=== PATIENT | female | born 1955 | race Caucasian/White ===

== ENCOUNTER 2022-06-08 11:30 | Observation (INO) ==
[2022-06-08 12:04] LABS: Appearance Urine Clear (Clear); Bacteria Urine Automated Negative (Negative); Bilirubin Urine Negative (Negative); Blood Urine Negative (Negative); Cast Urine Automated 0 /lpf (0-5); Color Urine Yellow; Epithelial Cell Urine Auto >30 /lpf (0-5); Glucose Urine UA Negative (Negative); Ketones Urine Negative (Negative); Leukocyte Esterase Urine Trace (Negative); Nitrite Urine Negative (Negative); RBC Urine Automated 0-4 /hpf (0-4); Specific Gravity Urine 1.015 (1.000-1.030); Urobilinogen Urine Negative (Negative); pH Urine 8.5 (4.5-7.5)
[2022-06-08 12:06] LABS: Protein Urine 1+ (Negative)
[2022-06-08 12:14] LABS: Basophils # (auto) 0.05 K/uL (0-0.2); Basophils % (auto) 0.6 %; Eosinophils # (auto) 0.17 K/uL (0-0.50); Hematocrit (blood only) 38.2 % (37.0-47.0); Hemoglobin 12.9 g/dl (12.0-16.0); Immature Granulocytes # (auto) 0.05 K/uL (0.01-0.20); Immature Granulocytes % (auto) 0.6 %; Lymphocytes % (auto) 22.8 %; Mean Corpuscular Hemoglobin 30.9 pg (25.0-34.0); Mean Corpuscular Hgb Conc 33.8 g/dL (32.0-36.0); Mean Corpuscular Volume 91.6 fL (80.0-100.0); Mean Platelet Volume 8.4 fL (9.4-12.4); Monocytes % (auto) 8.4 %; Neutrophils # (auto) 5.48 K/uL (1.40-6.50); Neutrophils % (auto) 65.6 %; Platelet Count 285 K/uL (130-400); RDW Coefficient of Variation 13.6 % (11.5-14.5); Red Blood Count 4.17 M/uL (4.20-5.40); White Blood Count 8.35 K/ul (4.8-10.8)
[2022-06-08] MEDS ORDERED: LORazepam 2 MG/1 ML VIAL IV STA (12:27)
[2022-06-08] MEDS ORDERED: SODIUM CHLORIDE 0.9% 1000ML 1,000 ML IV ONE ×2 (12:27→13:54)
[2022-06-08] MEDS ORDERED: MoRPHine SULFATE 4 MG/ML 1 ML CARP\\VIAL IV STA (12:27)
[2022-06-08 12:30] LABS: Albumin Level 3.7 gm/dl (3.4-5.0); Bilirubin,Total 0.5 mg/dl (0.2-1.0); Calcium 8.7 mg/dl (8.6-10.3); Potassium 4.3 mmol/L (3.5-5.1)
--- NOTE | 2022-06-08 12:33 | Emergency Department Note ---
Impression & Plan Intractable abdominal pain, Acute constipation, Anxiety ED Provider Note Name: JACE LAY Age: 66 Sex: F Arrives Via: Walk-In Informant: Patient, ED Provider: Quang Argueta MD Chief Complaint: Abdominal pain Impression: As per impressions above Medical Decision Makin-year-old female who has a history of COPD, depression/anxiety, hyperlipidemia, hypertension, restless leg, gastroparesis, CAD, GERD, personality disorder arrives for evaluation of worsening abdominal pain over the last week and a half. She had already been seen several days ago with a CT of the abdomen pelvis along with extensive other laboratory work-ups and no clear etiology could be found. They did note at that time that she had had a aortic ulceration/small dissection which patient states she is aware of. Reportedly at that time patient had no interest in staying in the hospital left AMA. Patient arrives with continued pain and noting that she has not had a bowel movement in about 10 days. On examination she does not truly have peritonitis and just has vague diffuse abdominal tenderness palpation. She is severely anxious sobbing at bedside. She is clearly uncomfortable as well. She was given IV narcotics with mild improvement as well as some IV Ativan which helped calm her down some. Unfortunately pain sided coming back again. I did feel that getting CT scan a gain was indicated which fortunately is negative other than the aortic findings seen earlier as well. Laboratory work-up is essentially benign. While she is uncomfortable I feel that with 2 CTs that are negative no other acute findings this is highly unlikely to be ischemic bowel related. There is no evidence of obstruction or infection or other concerning findings. On extensive discussion with the patient she does admit that they recently changed her Valium to Klonopin I suspect given how severely anxious she is this probably is not working very well for her quite this time. That said while this may have to do with anxiety medication change I do not feel comfortable discharging her haider aring her medically given the amount of pain she is having on and off. This may all just be a severe episode of gastroparesis with complicated constipation but she is not obstructed from any way I can see. She was hydrated and I did discuss the case with the hospitalist for further management. Prior Medical Record and Triage/Nursing Notes reviewed by Me External chart review completed by me Differentials:Ischemic bowel, small bowel obstruction, pancreatitis, aortic ru pture, diverticulitis, dissection, many other pathologies considered Vital Signs: reviewed and remarkable for no significant abnormalities Interventions: Morphine 4 mg IV, Benadryl 50 mg IV, Ativan 1 mg IV. Dilaudid 0.5 mg IV, normal saline bolus 2 L IV Labs:Reviewed and remarkable for no significant abnormalities Imaging:CT of the abdomen pelvis as per my informal interpretation reveals no e vidence of obstruction, free air. Radiologist report as per chart notes continued finding on the aorta with ulceration flash small dissection similar to previous unchanged. Consults:Dr Monroe of the [facility] service Plan: Disposition: Hospitalization. Condition: Good History of Present Illness:66-year-old female arrives for evaluation of abdominal pain. Patient notes diffuse abdominal pain. Going on 7 days. Stabbing cramping and relatively constant but does come in waves. Associated with severe nausea but unable to vomit due to previous Niesen surgery. Patient also admits she has not had a bowel movement in about 10 days. Usually she goes 3 to 4 days without a bowel movement. She was seen about a week ago in the ER had extensive laboratory work-up and CT of the abdomen pelvis was advised to stay but she notes she wanted to try going home. She has been in pain unable to eat and severe weakness at home. Patient has been using Klonopin without much improvement. She does note that she previously was on Valium and about a week ago switched from Valium to Klonopin per PCP. That is around the time that the pain started. Patient denies any falls, trauma, injuries. Has a history of abdominal surgery including previous mesh issues requiring repeat surgery. This surgery was all about 25 years ago. Past History:COPD/emphysema, hyperlipidemia, anxiety/depression, GERD, hypert ension Home Medications:See Below Allergies:Aspirin, NSAIDs, Lasix, Dilaudid Vitals:Blood Pressure: 153/81, Pulse 84, RR 20, T 37C, O2 96% on RA Physical Exam: GENERAL: Patient is severely upset/anxious appearing and in severe distress. Crying and sobbing with shaking. Frail and cachectic appearing EYES: No scleral icterus, unremarkable pupils. ENT: Mucous membranes dry RESPIRATORY: Mild tachypnea without any specific dyspnea, mild expiratory wheezing noted. CARDIOVASCULAR: Regular rate and rhythm.No murmurs, rubs, gallops appreciated. GASTROINTESTINAL: Abdomen soft, with diffuse nonspecific tenderness EXTREMITIES: Normal motion all extremities, no cyanosis, no edema. NEUROLOGIC: Alert and oriented, no gross neurologic deficit appreciated SKIN: No rash, no jaundice, no diaphoresis. PSYCH: Severely anxious and upset GCS: 15 ED Course: Times/Reassessments: Patient is feeling better with some pain medications and anxiety medication. Unfortunately pain started returning. She had some itching after morphine and thus Dilaudid was used with good effect Quang Argueta MD Past Med/Surg History Medical History Atherosclerosis Bladder infection Borderline personality disorder Cervical stenosis of spine Chronic constipation Chronic hyponatremia Chronic respiratory failure with hypoxia Chronic ulcerative ileocolitis COPD (chronic obstructive pulmonary disease) Coronary artery calcification Depression with anxiety Essential hypertension Fibrocystic breast changes Gastroparesis GERD (gastroesophageal reflux disease) Hepatitis Age 14 likely hepatitis A Hiatal hernia History of electroconvulsive therapy Hyperlipidemia Hypertension ABRAHAM (obstructive sleep apnea) Osteoporosis Restless leg syndrome Tobacco use Surgical History (Updated 06/08/22 @ 16:18 by Sally Dias PA-C) History of appendectomy History of cholecystectomy History of colonoscopy History of esophagogastroduodenoscopy (EGD) History of hernia repair Reported history diaphragm hernia repair History of hysterectomy History of neck surgery May [address] ACDF C5-6 [address] Patel Family History Sister Tremor Brother Tremor Social History (Updated 06/08/22 @ 16:02 by Sally Dias PA-C) Smoking Status: Current every day smoker Tobacco Type: Cigarettes Cigarettes Per Day: 1ppd x 50 years; Hx Alcohol Use: No Hx Substance Use: No Preferred Language: Haitian Communication Ability: Effective Lodge Attendant Required: No Beliefs That Will Affect Care: None Current Living Situation: Family Current Living Situation Comment: home with son Feels Safe at Home: Yes Assistive Devices: Oxygen - Continuous Allergies Allergies Allergy/AdvReac Type Severity Reaction Status Date / Time aspirin Allergy Severe EDEMA Verified 06/08/22 15:08 AIRWAY, ABD PAIN haloperidol [From Haldol] Allergy Severe PER PT Verified 06/08/22 15:08 "STOPS BREATHING".--PER [facility] latex Allergy Intermediate Contact Verified 06/08/22 15:08 Dermatitis--ITCHING-GLOVES/PLASTIC TAPE pistachio nut Allergy Intermediate Hives Verified 06/08/22 15:08 sulfamethoxazole Allergy Mild ITCHING Verified 06/08/22 15:08 [From Bactrim] trimethoprim [From Bactrim] Allergy Mild ITCHING Verified 06/08/22 15:08 whey Allergy Unknown POSITIVE Verified 06/08/22 15:08 ALLERGY TEST amoxicillin [From Augmentin] AdvReac Intermediate NAUSEA/VOMI Verified 06/08/22 15:08 TING ciprofloxacin AdvReac Intermediate WEAKNESS/TR Verified 06/08/22 15:08 EMORS/NAUSE A clavulanic acid AdvReac Intermediate NAUSEA/VOMI Verified 06/08/22 15:08 [From Augmentin] TING hydromorphone [From Dilaudid] AdvReac Intermediate HALLUCINATI Verified 06/08/22 15:08 ONS ibuprofen AdvReac Intermediate Abdominal Verified 06/08/22 15:08 Pain levofloxacin AdvReac Intermediate Abdominal Verified 06/08/22 15:08 Pain metoclopramide [From Reglan] AdvReac Intermediate LEG Verified 06/08/22 15:08 MOVEMENTS/RESTLESS mirtazapine [From Remeron] AdvReac Intermediate MUSCLE Verified 06/08/22 15:08 PAIN/LEGS RESTLESS moxifloxacin [From Avelox] AdvReac Intermediate NAUSEA/VOMI Verified 06/08/22 15:08 TING naproxen AdvReac Intermediate Abdominal Verified 06/08/22 15:08 Pain NSAIDS (Non-Steroidal AdvReac Intermediate Abdominal Verified 06/08/22 15:08 Anti-Inflamma Pain roflumilast AdvReac Intermediate UNABLE TO Verified 06/08/22 15:08 TOLERATE Home Meds Home Medications Medication Instructions Recorded Confirmed pantoprazole 40 mg tablet,delayed 40 mg PO DAILY 08/29/19 06/08/22 release venlafaxine 150 mg tablet,extended 450 mg PO DAILY 08/31/19 06/08/22 release 24 hr albuterol sulfate 90 mcg/actuation 2 puff inhalation Q4H PRN 06/08/22 06/08/22 aerosol inhaler BREATHING PROBLEMS--PER [facility] amlodipine 5 mg tablet 5 mg PO DAILY 06/08/22 06/08/22 atorvastatin 80 mg tablet 40 mg PO BID 06/08/22 06/08/22 azithromycin 250 mg tablet 250 mg PO 3XWK 06/08/22 06/08/22 budesonide 160 mcg-glycopyr 9 2 inh inhalation AMPM 06/08/22 06/08/22 mcg-formot 4.8 mcg/actuation HFA inhaler ([employer]) clonazepam 0.5 mg tablet 0.5 mg PO TID PRN Anxiety 06/08/22 06/08/22 clopidogrel 75 mg tablet 75 mg PO DAILY 06/08/22 06/08/22 clotrimazole 10 mg liya 10 mg PO 5XD 06/08/22 06/08/22 fluticasone propionate 50 2 spray intranasal DAILY PRN 06/08/22 06/08/22 mcg/actuation nasal Congestion spray,suspension ipratropium 0.5 mg-albuterol 3 mg 3 ml inhalation Q4H PRN Shortness 06/08/22 06/08/22 (2.5 mg base)/3 mL nebulization Of Breath Or Wheezing soln losartan 25 mg tablet 25 mg PO DAILY 06/08/22 06/08/22 magnesium oxide 400 mg (241.3 mg 400 mg PO QAM 06/08/22 06/08/22 magnesium) tablet qruoplso-zwn-wbkcs acid 500 1 tab PO DAILY 06/08/22 06/08/22 mcg-lycopene 300 mcg-lutein 250 mcg tablet ondansetron 4 mg disintegrating 4 mg PO DIRECTED PRN 06/08/22 06/08/22 tablet NAUSEA/VOMITING quetiapine 200 mg tablet 200 mg PO HS 06/08/22 06/08/22 sodium chloride 1,000 mg soluble 1,000 mg PO QAM 06/08/22 06/08/22 tablet Results & Data (ED) Vital Signs Vital Signs - 24 hr 06/08/22 11:38 06/08/22 12:44 06/08/22 12:48 Temperature 37 C Temperature Source Temporal Artery Scan Pulse Rate 84 77 78 Pulse Rate from SpO2 Sensor 77 Respiratory Rate 20 22 Respiratory Effort / Characteristics Non-Labored Spontaneous Respiratory Depth Normal Respiratory Pattern Regular Blood Pressure 153/81 H 152/78 H Blood Pressure Mean 105 102 Pulse Oximetry 96 94 Oxygen Delivery Method Room Air Room Air Oxygen Flow Rate Sepsis Recent Fever Within 48 Hours No Sepsis New/Unexplained Change in Mental Status No Sepsis Action Taken by Nursing No Action Required 06/08/22 13:10 06/08/22 13:30 06/08/22 14:37 Temperature Temperature Source Pulse Rate 82 83 Pulse Rate from SpO2 Sensor 82 86 83 Respiratory Rate 18 27 H Respiratory Effort / Characteristics Respiratory Depth Respiratory Pattern Blood Pressure Blood Pressure Mean Pulse Oximetry 94 92 92 Oxygen Delivery Method Oxygen Flow Rate Sepsis Recent Fever Within 48 Hours Sepsis New/Unexplained Change in Mental Status Sepsis Action Taken by Nursing 06/08/22 14:38 06/08/22 14:38 06/08/22 15:00 Temperature Temperature Source Pulse Rate 82 Pulse Rate from SpO2 Sensor 82 Respiratory Rate 23 Respiratory Effort / Characteristics Respiratory Depth Respiratory Pattern Blood Pressure 160/83 H 149/82 H Blood Pressure Mean 108 104 Pulse Oximetry 93 Oxygen Delivery Method Room Air Oxygen Flow Rate Sepsis Recent Fever Within 48 Hours Sepsis New/Unexplained Change in Mental Status Sepsis Action Taken by Nursing 06/08/22 15:00 Temperature Temperature Source Pulse Rate 82 Pulse Rate from SpO2 Sensor 82 Respiratory Rate 22 Respiratory Effort / Characteristics Respiratory Depth Respiratory Pattern Blood Pressure Blood Pressure Mean Pulse Oximetry 97 Oxygen Delivery Method Nasal Cannula Oxygen Flow Rate 2 Sepsis Recent Fever Within 48 Hours Sepsis New/Unexplained Change in Mental Status Sepsis Action Taken by Nursing Laboratory Data 06/08/22 11:44 06/08/22 11:44 Lab Results 06/08/22 06/08/22 06/08/22 Range/Units 11:44 11:44 11:50 WBC 8.35 (4.8-10.8) K/ul RBC 4.17 L (4.20-5.40) M/uL Hgb 12.9 (12.0-16.0) g/dl Hct 38.2 (37.0-47.0) % MCV 91.6 (80.0-100.0) fL MCH 30.9 (25.0-34.0) pg MCHC 33.8 (32.0-36.0) g/dL RDW Std Deviation 46.0 (36.4-46.3) fL RDW Coeff of Aniket 13.6 (11.5-14.5) % Plt Count 285 (130-400) K/uL MPV 8.4 L (9.4-12.4) fL Immature Gran % (Auto) 0.6 % Neut % (Auto) 65.6 % Lymph % (Auto) 22.8 % [place] % (Auto) 8.4 % Eos % (Auto) 2.0 % Baso % (Auto) 0.6 % Neut # (Auto) 5.48 (1.40-6.50) K/uL Lymph # (Auto) 1.90 (1.2-3.4) K/uL [place] # (Auto) 0.70 H (0.11-0.59) K/uL Eos # (Auto) 0.17 (0-0.50) K/uL Baso # (Auto) 0.05 (0-0.2) K/uL Immature Gran # (Auto) 0.05 (0.01-0.20) K/uL Sodium 135 L (136-145) mmol/L Potassium 4.3 (3.5-5.1) mmol/L Chloride 105 (98-107) mmol/L Carbon Dioxide 24 (21-32) mmol/L Anion Gap 6 (3-11) BUN 11 (6-23) mg/dl Creatinine 0.66 (0.6-1.2) mg/dl Est Cr Clr Drug Dosing 60.2 ml/min Est GFR ( Amer) 106.7 ml/min Est GFR (Non-Af Amer) 92.1 ml/min BUN/Creatinine Ratio 16.7 (10-20) Glucose 94 (70-99(Fasting)) mg/dl Calcium 8.7 (8.6-10.3) mg/dl Total Bilirubin 0.5 (0.2-1.0) mg/dl AST 27 (13-39) U/L ALT 53 H (7-52) U/L Alkaline Phosphatase 90 (34-104) U/L Total Protein 6.5 (6.0-8.3) gm/dl Albumin 3.7 (3.4-5.0) gm/dl Globulin 2.8 (2.5-4.0) gm/dl Albumin/Globulin Ratio 1.3 (0.9-2) Lipase 15 (11-82) U/L Urine Color Yellow Urine Appearance Clear (Clear) Urine pH 8.5 H (4.5-7.5) Ur Specific [place] 1.015 (1.000-1.030) Urine Protein 1+ H (Negative) Urine Glucose (UA) Negative (Negative) Urine Ketones Negative (Negative) Urine Blood Negative (Negative) Urine Nitrite Negative (Negative) Urine Bilirubin Negative (Negative) Urine Urobilinogen Negative (Negative) Ur Leukocyte Esterase Trace H (Negative) Urine WBC (Auto) 1-5 (0-5) /hpf Urine RBC (Auto) 0-4 (0-4) /hpf U Hyaline Cast (Auto) 0 (0-5) /lpf U Epithel Cells (Auto) >30 H (0-5) /lpf Urine Bacteria (Auto) Negative (Negative) Urine Opiates Screen (Neg) Ur Methadone, Qual (Neg) Urine Barbiturates (Neg) Ur Phencyclidine (PCP) (Neg) U Amphetamin/Meth Scrn (Neg) MDMA (Ecstasy) Screen (Neg) U Benzodiazepines Scrn (Neg) Ur Cocaine Metabolite (Neg) U Marijuana (THC) Screen (Neg) SARS-CoV-2, RNA, NAAT (NEGATIVE) 06/08/22 06/08/22 Range/Units 14:33 14:34 WBC (4.8-10.8) K/ul RBC (4.20-5.40) M/uL Hgb (12.0-16.0) g/dl Hct (37.0-47.0) % MCV (80.0-100.0) fL MCH (25.0-34.0) pg MCHC (32.0-36.0) g/dL RDW Std Deviation (36.4-46.3) fL RDW Coeff of Aniket (11.5-14.5) % Plt Count (130-400) K/uL MPV (9.4-12.4) fL Immature Gran % (Auto) % Neut % (Auto) % Lymph % (Auto) % [place] % (Auto) % Eos % (Auto) % Baso % (Auto) % Neut # (Auto) (1.40-6.50) K/uL Lymph # (Auto) (1.2-3.4) K/uL [place] # (Auto) (0.11-0.59) K/uL Eos # (Auto) (0-0.50) K/uL Baso # (Auto) (0-0.2) K/uL Immature Gran # (Auto) (0.01-0.20) K/uL Sodium (136-145) mmol/L Potassium (3.5-5.1) mmol/L Chloride (98-107) mmol/L Carbon Dioxide (21-32) mmol/L Anion Gap (3-11) BUN (6-23) mg/dl Creatinine (0.6-1.2) mg/dl Est Cr Clr Drug Dosing ml/min Est GFR ( Amer) ml/min Est GFR (Non-Af Amer) ml/min BUN/Creatinine Ratio (10-20) Glucose (70-99(Fasting)) mg/dl Calcium (8.6-10.3) mg/dl Total Bilirubin (0.2-1.0) mg/dl AST (13-39) U/L ALT (7-52) U/L Alkaline Phosphatase (34-104) U/L Total Protein (6.0-8.3) gm/dl Albumin (3.4-5.0) gm/dl Globulin (2.5-4.0) gm/dl Albumin/Globulin Ratio (0.9-2) Lipase (11-82) U/L Urine Color Urine Appearance (Clear) Urine pH (4.5-7.5) Ur Specific [place] (1.000-1.030) Urine Protein (Negative) Urine Glucose (UA) (Negative) Urine Ketones (Negative) Urine Blood (Negative) Urine Nitrite (Negative) Urine Bilirubin (Negative) Urine Urobilinogen (Negative) Ur Leukocyte Esterase (Negative) Urine WBC (Auto) (0-5) /hpf Urine RBC (Auto) (0-4) /hpf U Hyaline Cast (Auto) (0-5) /lpf U Epithel Cells (Auto) (0-5) /lpf Urine Bacteria (Auto) (Negative) Urine Opiates Screen Pos H (Neg) Ur Methadone, Qual Neg (Neg) Urine Barbiturates Neg (Neg) Ur Phencyclidine (PCP) Neg (Neg) U Amphetamin/Meth Scrn Neg (Neg) MDMA (Ecstasy) Screen Neg (Neg) U Benzodiazepines Scrn Neg (Neg) Ur Cocaine Metabolite Neg (Neg) U Marijuana (THC) Screen Neg (Neg) SARS-CoV-2, RNA, NAAT NEGATIVE (NEGATIVE) Administered Medications Clotrimazole (Clotrimazole 10 Mg Liya) 10 mg BUCCAL [id number] LILY Stop: 06/18/22 17:14 Last Admin: 06/08/22 18:04 Dose: 10 mg Documented By: NRB Enoxaparin Sodium (Enoxaparin Inj 40 Mg/0.4 Ml Syr) 40 mg SQ Q24H LILY Stop: 07/08/22 16:59 Last Admin: 06/08/22 18:34 Dose: 40 mg Documented By: MANISH Sodium Chloride (Nss 1000ml) 1,000 mls @ 80 mls/hr IV .[id number] LILY Stop: 06/09/22 05:13 Last Admin: 06/08/22 17:06 Dose: 80 mls/hr Documented By: MANISH Losartan Potassium (Losartan Potassium 25 Mg Tab) 25 mg PO DAILY LILY Stop: 07/08/22 16:59 Last Admin: 06/08/22 18:06 Dose: 25 mg Documented By: NRMukesh Nicotine (Nicotine 21 Mg/24 Hr Tdsy) 21 mg TD QAM LILY Stop: 07/08/22 16:59 Last Admin: 06/08/22 17:03 Dose: 21 mg Documented By: MANISH Discontinued Medications Albuterol (Albut/Ipratrop 3mg/0.5mg Neb 3 Ml Vial) 3 ml NEB NOW STA; Protocol Stop: 06/08/22 13:34 Last Admin: 06/08/22 14:16 Dose: 3 ml Documented By: OLAF Bisacodyl (Bisacodyl 10 Mg Supp) 10 mg NC NOW STA Stop: 06/08/22 16:45 Last Admin: 06/08/22 17:04 Dose: 10 mg Documented By: MANISH Diphenhydramine HCl (Diphenhydramine 50 Mg/Ml Vial) 50 mg IV NOW STA Stop: 06/08/22 13:34 Last Admin: 06/08/22 14:18 Dose: Not Given Documented By: OLAF Hydromorphone HCl (Hydromorphone Inj 0.5 Mg/0.5 Ml Syr) 0.5 mg IV NOW STA Stop: 06/08/22 13:55 Last Admin: 06/08/22 14:19 Dose: Not Given Documented By: OLAF Sodium Chloride (Nss 1000ml) 1,000 mls @ 999 mls/hr IV .Q1H1M ONE Stop: 06/08/22 13:27 Last Infusion: 06/08/22 14:16 Dose: 0 mls/hr Documented By: Admin: 06/08/22 12:34 Dose: 999 mls/hr Documented By: MANISH Sodium Chloride (Nss 1000ml) 1,000 mls @ 999 mls/hr IV .Q1H1M ONE Stop: 06/08/22 14:54 Last Infusion: 06/08/22 16:10 Dose: 0 mls/hr Documented By: Admin: 06/08/22 14:16 Dose: 999 mls/hr Documented By: OLAF Ioversol (Optiray 350 100ml) 83 ml IV ONCE ONE Stop: 06/08/22 13:04 Last Admin: 06/08/22 13:03 Dose: 83 ml Documented By: MARIA ESTHER Lorazepam (Lorazepam 2 Mg/1 Ml Vial) 1 mg IV NOW STA Stop: 06/08/22 12:28 Last Admin: 06/08/22 12:36 Dose: 1 mg Documented By: MANISH Morphine Sulfate (Morphine Sulfate 4 Mg/Ml 1 Ml Carp\\Vial) 4 mg IV NOW STA Stop: 06/08/22 12:28 Last Admin: 06/08/22 12:34 Dose: 4 mg Documented By: MANISH Imaging Data Radiologist's Impression: Abdomen/Pelvis CT 06/08/22 12:27 CT abd pelvis IV con only CLINICAL HISTORY: persistent diffuse abdominal pain TECHNIQUE: Helical axial images of the abdomen and pelvis were obtained and displayed. Automated dose lowering techniques and/or adjustment according to patient size were utilized for this exam. This exam was performed with intravenous contrast. CT DOSE: 240.76 mGy.cm COMPARISON: Comparison is made to CT abdomen pelvis 06/02/2022 FINDINGS: Lower chest: No acute abnormality. Liver: Unremarkable. No focal lesions are seen. Gallbladder and biliary tree: Patient is status post cholecystectomy. Physiologic prominence of the biliary ducts is noted. Pancreas: Unremarkable, no focal lesions. Spleen: Unremarkable. Adrenals: Bilateral nodularity of the left adrenal gland is unchanged. Kidneys and ureters: Unremarkable. Bladder: Unremarkable. Reproductive organs: Patient is status post hysterectomy. Bowel: Patient is status post appendectomy. Postsurgical changes are seen about the stomach with a tiny hiatal hernia. Lymph nodes Retroperitoneal: Unremarkable. Pelvic: Unremarkable. Mesenteric: Unremarkable. Peritoneum: Normal. Vessels: Atherosclerotic calcifications are seen. Redemonstration of a tiny dissection/ulcerated plaque in the infrarenal aorta without acute abnormalities. Abdominal wall: Unremarkable. Bones: Degenerative changes in the visualized spine. IMPRESSION: 1. No acute abnormalities to explain persistent diffuse abdominal pain. 2. Additional findings as above. ACT 112: Negative or not required by law. Electronically signed by: Chuy Medley M.D. 06/08/2022 1:15 PM Discharge Plan Visit Data Chief Complaint: Abdominal Pain Stated Complaint: ABDOMINAL PAIN ED Provider: Quang Argueta Discharge Problem: Intractable abdominal pain, Acute constipation, Anxiety Discharge Instructions Interventions: ED Discharge Assessment Last Done: 06/08/22 16:42
[2022-06-08 12:36] LABS: Albumin Globulin Ratio 1.3 (0.9-2); BUN Creatinine Ratio 16.7 (10-20); Creatinine Clr Calc Pharmacy 60.2 ml/min; Est GFR (African American) 106.7 ml/min; Est GFR (Non-African American) 92.1 ml/min; Globulin 2.8 gm/dl (2.5-4.0); Total Protein 6.5 gm/dl (6.0-8.3)
[2022-06-08] MEDS ORDERED: OPTIRAY 350 100ml IV ONE (13:03)
--- NOTE | 2022-06-08 13:17 | CT Scan Report ---
CT abd pelvis IV con only CLINICAL HISTORY: persistent diffuse abdominal pain TECHNIQUE: Helical axial images of the abdomen and pelvis were obtained and displayed. Automated dose lowering techniques and/or adjustment according to patient size were utilized for this exam. This e xam was performed with intravenous contrast. CT DOSE: 240.76 mGy.cm COMPARISON: Comparison is made to CT abdomen pelvis 06/02/2022 FINDINGS: Lower chest: No acute abnormality. Liver: Unremarkable. No focal lesions are seen. Gallbladder and biliary tree: Patient is status post cholecystectomy. Physiologic prominence of the b iliary ducts is noted. Pancreas: Unremarkable, no focal lesions. Spleen: Unremarkable. Adrenals: Bilateral nodularity of the left adrenal gland is unchanged. Kidneys and ureters: Unremarkable. Bladder: Unremarkable. Reproductive organs: Patient is status post hysterectomy. Bowel: Patient is status post appendectomy. Postsurgical changes are seen about the stomach with a ti ny hiatal hernia. Lymph nodes Retroperitoneal: Unremarkable. Pelvic: Unremarkable. Mesenteric: Unremarkable. Peritoneum: Normal. Vessels: Atherosclerotic calcifications are seen. Redemonstration of a tiny dissection/ulcerated plaq ue in the infrarenal aorta without acute abnormalities. Abdominal wall: Unremarkable. Bones: Degenerative changes in the visualized spine. IMPRESSION: 1. No acute abnormalities to explain persistent diffuse abdominal pain. 2. Additional findings as above. ACT 112: Negative or not required by law. Electronically signed by: Chuy Medley M.D. 06/08/2022 1:15 PM
[2022-06-08] MEDS ORDERED: diphenhydrAMINE 50 MG/ML VIAL IV STA (13:33)
[2022-06-08] MEDS ORDERED: ALBUT/IPRATROP 3MG/0.5MG NEB 3 ML VIAL NEB STA (13:33)
[2022-06-08] MEDS ORDERED: HYDROmorphone INJ 0.5 MG/0.5 ML SYR IV STA (13:54)
--- NOTE | 2022-06-08 14:46 | History & Physical Report ---
Date of Service June 08, 2022 Assessment & Plan (1) Abdominal pain: (2) Chronic constipation: (3) Gastroparesis: Plan: Patient is 66-year-old female with PMH chronic abdominal pain, gastroparesis, chronic constipation presented to ER with complaint of ongoing abdominal pain, constipation x 1 week. Tried home enema yesterday without relief History colonoscopy 08/13/2021: Poor colon prep with poor visualization History EGD 08/13/2021: Gastritis, Hill grade IV gastroesophageal valve MR defecography was attempted however unable to be completed secondary to patient's somnolence per outpatient chart review In ER vitals stable. No leukocytosis, lipase &LFTs WNL, lactate WNL CT abdomen pelvis: No acute abnormalities to explain persistent diffuse abdominal pain. Chronic constipation and chronic abdominal pain without acute findings today In ER given 2L NSS, morphine, Dilaudid, Ativan, Benadryl Admit observation Gentle IVF We will try to avoid further narcotics at this time Bowel regimen with Dulcolax suppository, lactulose. May need to further adjust Patient may benefit from newer constipation agent. Will defer to GI GI consult CBC, CMP in a.m. (4) GERD (gastroesophageal reflux disease): Plan: Continue PPI Previously prescribed Carafate. Patient reports has not been using for several months as she was prescribed Carafate suspension and she did not like that (5) Chronic respiratory failure with hypoxia: (6) COPD (chronic obstructive pulmonary disease): Plan: On 2 L oxygen chronically Chronic shortness of breath, cough, wheezing per patient without reported increased SOB, cough. Denies fever or chills CXR: No acute infiltrate No acute exacerbation suspected currently Continue neb treatments Continue home inhalers On chronic Zithromax Thursday and Fridays Follows with [facility] pulmonology (7) Depression with anxiety: (8) Borderline personality disorder: Plan: Continue Seroquel Patient Effexor Rx is for 3 tabs daily (450mg daily). Informed by our pharmacist max dose is 375 mg. Will dose 375 mg daily for now. Currently on clonazepam. Previously on diazepam. Patient requesting to be switched back to diazepam Will hold home clonazepam and restart diazepam Psychiatry consult PDMP reviewed. Clonazepam 0.5 mg quantity 90 for 30-day supply filled on 05/30/2022 and 21 quantity for 7 days supply filled on 05/23/2022. Diazepam 2 mg quantity 120 for 30-day supply filled on 05/19/2022 and 04/21/2022. Patient is to follow-up with psychiatry: Guillermo Santos on 06/12/2022 (9) Hypertension: Plan: Continue amlodipine, losartan (10) Thrush: Plan: Recently diagnosed thrush and started clotrimazole troches 06/05/2022 Continue clotrimazole troches (11) Chronic hyponatremia: Plan: Na: 135 Has been on sodium tabs at home Will hold sodium tabs currently as received NSS Monitor BMP (12) Hyperlipidemia: Plan: On atorvastatin however reports has not been taking as she feels it is causing muscle aches (13) Coronary artery calcification: Plan: Coronary artery calcifications noted on CT scan Followed with [facility] cardiology Continue Plavix (14) ABRAHAM (obstructive sleep apnea): Plan: Does not use CPAP or BiPAP (15) Tobacco use: Plan: Smoking cessation recommended Nicotine patch DVT Prophylaxis Lovenox SQ Full code as per discussion with pt Follows with Dr Ryan Rossi Jazmine Santos for routine care Pt was seen and care coordinated with Dr Monroe. See addendum I spent a total of 80 minutes reviewing notes, outpatient records, labs, medication, coordinating, documenting and providing care for this patient excluding time spent in the performance of separately billed services. History of Present Illness Chief Complaint: abdominal pain Primary Care Provider: Boogie Meraz MD Patient is 66-year-old female with PMH coronary artery calcifications, HTN, HLD, prediabetes, COPD, chronic respiratory failure on 2 L oxygen, tobacco use, depression, borderline personality disorder, GERD, chronic abdominal pain, gastroparesis, chronic constipation and others listed below presented to ER with complaint of abdominal pain. Patient with history of chronic constipation. History chronic abdominal pain, chronic nausea reported over 20 years. Outpatient records reviewed and previously seen by [facility] GI who thought may have gastroparesis. MR defecography was attempted however unable to be completed secondary to patient's somnolence. Patient most recently seen by GI on 06/02/2022 and had reported severe right lower quadrant pain so was referred to ER. She was seen at [facility] ER on 06/02/2022 for abdominal pain and CT abdomen pelvis at that time did not show any acute intra-abdominal etiology. It was recommended patient be admitted at that time however patient decided to be discharged home. Patient states has not had a bowel movement for the past week. She reports that she has been taking Miralax 2 capfuls daily without relief. Patient states in past/tried other OTC laxatives without relief. She states yesterday and tried home enema without relief. Today she complains of diffuse abdominal pain which she states feels like her chronic pain however states that she is " tired of having chronic pain and decided to present to ER today". Patient with chronic shortness of breath and chronic cough at baseline. Feels shortness of breath is typically worse in the mornings. Denies any increased cough or increased shortness of breath. She reports she has been using her oxygen 2 L continuous. Still continues to smoke. Patient also reports that she has been on long-term Valium for chronic anxiety. She states recently Valium was changed to Klonopin as she asked PCP for something different because she felt Valium was not helping. Patient is to follow-up with psychiatry: Guillermo Santos on 06/12/2022. Patient states since being on Klonopin she feels the Valium helped better and is requesting going back on Valium. Denies fever/chills, diaphoresis, vomiting, M[place], dizziness, syncope, vision changes, neck pain, CP, palpitations, hemoptysis, sore throat, choking, otalgia, rhinorrhea, extremity weakness, extremity edema, rashes, urinary symptoms. Outpatient chart review: History colonoscopy 08/13/2021: Poor colon prep with poor visualization History EGD 08/13/2021: Gastritis, Hill grade IV gastroesophageal valve Allergies Allergy/AdvReac Type Severity Reaction Status Date / Time aspirin Allergy Severe EDEMA Verified 06/08/22 15:08 AIRWAY, ABD PAIN haloperidol [From Haldol] Allergy Severe PER PT Verified 06/08/22 15:08 "STOPS BREATHING".--PER [facility] latex Allergy Intermediate Contact Verified 06/08/22 15:08 Dermatitis--ITCHING-GLOVES/PLASTIC TAPE pistachio nut Allergy Intermediate Hives Verified 06/08/22 15:08 sulfamethoxazole Allergy Mild ITCHING Verified 06/08/22 15:08 [From Bactrim] trimethoprim [From Bactrim] Allergy Mild ITCHING Verified 06/08/22 15:08 whey Allergy Unknown POSITIVE Verified 06/08/22 15:08 ALLERGY TEST amoxicillin [From Augmentin] AdvReac Intermediate NAUSEA/VOMI Verified 06/08/22 15:08 TING ciprofloxacin AdvReac Intermediate WEAKNESS/TR Verified 06/08/22 15:08 EMORS/NAUSE A clavulanic acid AdvReac Intermediate NAUSEA/VOMI Verified 06/08/22 15:08 [From Augmentin] TING hydromorphone [From Dilaudid] AdvReac Intermediate HALLUCINATI Verified 06/08/22 15:08 ONS ibuprofen AdvReac Intermediate Abdominal Verified 06/08/22 15:08 Pain levofloxacin AdvReac Intermediate Abdominal Verified 06/08/22 15:08 Pain metoclopramide [From Reglan] AdvReac Intermediate LEG Verified 06/08/22 15:08 MOVEMENTS/RESTLESS mirtazapine [From Remeron] AdvReac Intermediate MUSCLE Verified 06/08/22 15:08 PAIN/LEGS RESTLESS moxifloxacin [From Avelox] AdvReac Intermediate NAUSEA/VOMI Verified 06/08/22 15:08 TING naproxen AdvReac Intermediate Abdominal Verified 06/08/22 15:08 Pain NSAIDS (Non-Steroidal AdvReac Intermediate Abdominal Verified 06/08/22 15:08 Anti-Inflamma Pain roflumilast AdvReac Intermediate UNABLE TO Verified 06/08/22 15:08 TOLERATE Home Medications Medication Instructions Recorded Confirmed Type pantoprazole 40 mg tablet,delayed 40 mg PO DAILY 08/29/19 06/08/22 History release venlafaxine 150 mg tablet,extended 450 mg PO DAILY 08/31/19 06/08/22 History release 24 hr albuterol sulfate 90 mcg/actuation 2 puff inhalation Q4H PRN 06/08/22 06/08/22 History aerosol inhaler BREATHING PROBLEMS--PER [facility] amlodipine 5 mg tablet 5 mg PO DAILY 06/08/22 06/08/22 History atorvastatin 80 mg tablet 40 mg PO BID 06/08/22 06/08/22 History azithromycin 250 mg tablet 250 mg PO 3XWK 06/08/22 06/08/22 History budesonide 160 mcg-glycopyr 9 2 inh inhalation AMPM 06/08/22 06/08/22 History mcg-formot 4.8 mcg/actuation HFA inhaler (Breztri Aerosphere) clonazepam 0.5 mg tablet 0.5 mg PO TID PRN Anxiety 06/08/22 06/08/22 History clopidogrel 75 mg tablet 75 mg PO DAILY 06/08/22 06/08/22 History clotrimazole 10 mg liya 10 mg PO 5XD 06/08/22 06/08/22 History fluticasone propionate 50 2 spray intranasal DAILY PRN 06/08/22 06/08/22 History mcg/actuation nasal Congestion spray,suspension ipratropium 0.5 mg-albuterol 3 mg 3 ml inhalation Q4H PRN Shortness 06/08/22 06/08/22 History (2.5 mg base)/3 mL nebulization Of Breath Or Wheezing soln losartan 25 mg tablet 25 mg PO DAILY 06/08/22 06/08/22 History magnesium oxide 400 mg (241.3 mg 400 mg PO QAM 06/08/22 06/08/22 History magnesium) tablet mzbtjdnb-cgt-boewc acid 500 1 tab PO DAILY 06/08/22 06/08/22 History mcg-lycopene 300 mcg-lutein 250 mcg tablet ondansetron 4 mg disintegrating 4 mg PO DIRECTED PRN 06/08/22 06/08/22 History tablet NAUSEA/VOMITING quetiapine 200 mg tablet 200 mg PO HS 06/08/22 06/08/22 History sodium chloride 1,000 mg soluble 1,000 mg PO QAM 06/08/22 06/08/22 History tablet Past Med/Surg History Medical History Atherosclerosis Bladder infection Borderline personality disorder Cervical stenosis of spine Chronic constipation Chronic hyponatremia Chronic respiratory failure with hypoxia Chronic ulcerative ileocolitis COPD (chronic obstructive pulmonary disease) Coronary artery calcification Depression with anxiety Essential hypertension Fibrocystic breast changes Gastroparesis GERD (gastroesophageal reflux disease) Hepatitis Age 14 likely hepatitis A Hiatal hernia History of electroconvulsive therapy Hyperlipidemia Hypertension ABRAHAM (obstructive sleep apnea) Osteoporosis Restless leg syndrome Tobacco use Surgical History (Updated 06/08/22 @ 16:18 by Sally Dias PA-C) History of appendectomy History of cholecystectomy History of colonoscopy History of esophagogastroduodenoscopy (EGD) History of hernia repair Reported history diaphragm hernia repair History of hysterectomy History of neck surgery May [address] ACDF C5-6 [address] Patel Family History Sister Tremor Brother Tremor Social History (Updated 06/08/22 @ 16:02 by Sally Dias PA-C) Smoking Status: Current every day smoker Tobacco Type: Cigarettes Cigarettes Per Day: 1ppd x 50 years; Hx Alcohol Use: No Hx Substance Use: No Preferred Language: Samoan Communication Ability: Effective Terrazzo Layer Required: No Beliefs That Will Affect Care: None Current Living Situation: Family Current Living Situation Comment: home with son Feels Safe at Home: Yes Assistive Devices: Oxygen - Continuous Review of Systems Review of Systems: All systems reviewed & are unremarkable except as noted in HPI & below Physical Exam Physical Exam: General: no acute distress, WDWN, chronic ill-appearing Head: normocephalic, atraumatic Eyes: conjunctiva non-injected, anicteric ENT: normal inspection external ears, nose, mucous membranes moist Neck: supple, trachea midline Lungs: no respiratory distress on room air, faint wheezing throughout, no rhonchi/rales CV: RRR, no murmur, no JVD, no pretibial edema Abd: normal BS, soft, currently non-tender to deep palpation Ext: no cyanosis, no calf tenderness Neuro: A&O x 3, no focal deficits noted, tearful affect Skin: warm, dry Results & Data Results & Data Vital Signs (Past 12 Hours) Vital Signs Temp Pulse Resp BP Pulse Ox O2 Del Method 06/08/22 14:38 82 23 93 Room Air 06/08/22 14:38 160/83 H 06/08/22 14:37 83 27 H 92 06/08/22 13:30 92 06/08/22 13:10 82 18 94 06/08/22 12:48 78 06/08/22 12:44 77 22 152/78 H 94 Room Air 06/08/22 11:38 37 C 84 20 153/81 H 96 Room Air Laboratory Results Short CBC 06/08/22 Range/Units 11:44 WBC 8.35 (4.8-10.8) K/ul Hgb 12.9 (12.0-16.0) g/dl Hct 38.2 (37.0-47.0) % Plt Count 285 (130-400) K/uL BMP 06/08/22 11:44 Sodium 135 L Potassium 4.3 Chloride 105 Carbon Dioxide 24 BUN 11 Creatinine 0.66 Glucose 94 Calcium 8.7 Liver Function 06/08/22 Range/Units 11:44 Total Bilirubin 0.5 (0.2-1.0) mg/dl AST 27 (13-39) U/L ALT 53 H (7-52) U/L Alkaline Phosphatase 90 (34-104) U/L Albumin 3.7 (3.4-5.0) gm/dl Urine 06/08/22 Range/Units 11:50 Urine Color Yellow Urine Appearance Clear (Clear) Urine pH 8.5 H (4.5-7.5) Ur Specific [place] 1.015 (1.000-1.030) Urine Protein 1+ H (Negative) Urine Glucose (UA) Negative (Negative) Diagnostic Findings Abdomen/Pelvis CT 06/08/22 12:27 CT abd pelvis IV con only CLINICAL HISTORY: persistent diffuse abdominal pain TECHNIQUE: Helical axial images of the abdomen and pelvis were obtained and displayed. Automated dose lowering techniques and/or adjustment according to patient size were utilized for this exam. This exam was performed with intravenous contrast. CT DOSE: 240.76 mGy.cm COMPARISON: Comparison is made to CT abdomen pelvis 06/02/2022 FINDINGS: Lower chest: No acute abnormality. Liver: Unremarkable. No focal lesions are seen. Gallbladder and biliary tree: Patient is status post cholecystectomy. Physiologic prominence of the biliary ducts is noted. Pancreas: Unremarkable, no focal lesions. Spleen: Unremarkable. Adrenals: Bilateral nodularity of the left adrenal gland is unchanged. Kidneys and ureters: Unremarkable. Bladder: Unremarkable. Reproductive organs: Patient is status post hysterectomy. Bowel: Patient is status post appendectomy. Postsurgical changes are seen about the stomach with a tiny hiatal hernia. Lymph nodes Retroperitoneal: Unremarkable. Pelvic: Unremarkable. Mesenteric: Unremarkable. Peritoneum: Normal. Vessels: Atherosclerotic calcifications are seen. Redemonstration of a tiny dissection/ulcerated plaque in the infrarenal aorta without acute abnormalities. Abdominal wall: Unremarkable. Bones: Degenerative changes in the visualized spine. IMPRESSION: 1. No acute abnormalities to explain persistent diffuse abdominal pain. 2. Additional findings as above. ACT 112: Negative or not required by law. Electronically signed by: Chuy Medley M.D. 06/08/2022 1:15 PM Chest X-Ray 06/08/22 16:03 XR chest 1V portable CLINICAL HISTORY: cough TECHNIQUE: Single frontal radiograph of the chest was obtained. Comparison: None available at the time of this dictation. FINDINGS: No lines and tubes are seen. Calcified aortic knob is seen. The lungs are clear. No evidence of pleural effusion or pneumothorax. IMPRESSION: No acute chest disease. ACT 112: Negative or not required by law. Electronically signed by: Chuy Medley M.D. 06/08/2022 4:44 PM Supervising Physician Co-Signing Physician Notes Care coordinated with Sally Dias PA-C. Agree with above note. Patient seen and examined. Please refer to her notes for full details. Vital signs reviewed. Physical exam: General exam: Alert and oriented. Not in acute distress. CVS: S1 and S2 heard, regular rate and rhythm, no murmurs. RS: Clear to auscultation, no wheezing or crackles. ABD: Soft, bowel sounds present, mild diffuse tender , no distention. LAN ENGINEER: Nonfocal. EXT: No edema, no erythema. Labs: Reviewed. Assessment and plan: 66F with hx of copd on home oxygen 2lts, hxof chronic constipation, chronic abdominal pain, gastroparesis? presents with ongoing abdominal pain and nausea and constipation Abdominal pain constipation Gastroparesis? allergic to Reglan pain control lactulose consult GI in am. Borderline personality disorder anxiety continue home meds recently Valium was changed to Klonopin and patient thinks Valium helped better will Change to Valium psychiatry consult to help with meeds. Other diagnosis and plan of care as per Sally Dias PA-C. Jason ortiz MD.
[2022-06-08 15:17] LABS: Amphetamines+Metham, Urine Neg (Neg); Barbiturates, Urine Neg (Neg); Benzodiazepine, Urine Neg (Neg); Cocaine, Urine Neg (Neg); MDMA (Ecstacy), Urine Neg (Neg); Methadone, Urine Neg (Neg); Opiate, Urine Pos (Neg); Phencyclidine, Urine Neg (Neg)
[2022-06-08] MEDS ORDERED: NON-FORMULARY MEDICATION (Budesonide-Glycopyr-Formoterol [Breztri Aerosphere] 160-9-4.8 mc INH SCH (16:44)
[2022-06-08] MEDS ORDERED: bisacodyL 10 MG SUPP PR STA (16:44)
[2022-06-08] MEDS ORDERED: ONDANSETRON INJ 2 MG/ML 2 ML VIAL IV PRN (16:44)
[2022-06-08] MEDS ORDERED: SODIUM CHLORIDE 0.9% 1000ML 1,000 ML IV SCH (16:44)
--- NOTE | 2022-06-08 16:46 | XRay Report ---
XR chest 1V portable CLINICAL HISTORY: cough TECHNIQUE: Single frontal radiograph of the chest was obtained. Comparison: None available at the time of this dictation. FINDINGS: No lines and tubes are seen. Calcified aortic knob is seen. The lungs are clear. No evidence of pleur al effusion or pneumothorax. IMPRESSION: No acute chest disease. ACT 112: Negative or not required by law. Electronically signed by: Chuy Medley M.D. 06/08/2022 4:44 PM
[2022-06-08] MEDS ORDERED: diazePAM 2 MG TABLET PO PRN ×2 (16:52→19:07)
[2022-06-08] MEDS: NICOTINE 21 MG/24 HR TDSY TD SCH (17:03)
[2022-06-08] MEDS: CLOTRIMAZOLE 10 MG TROCHE BUCCAL SCH ×3 (18:04→22:37)
[2022-06-08] MEDS: LOSARTAN POTASSIUM 25 MG TAB PO SCH (18:06)
[2022-06-08] MEDS: ENOXAPARIN INJ 40 MG/0.4 ML SYR SQ SCH (18:34)
[2022-06-08] MEDS: ALBUT/IPRATROP 3MG/0.5MG NEB 3 ML VIAL NEB SCH (19:21)
[2022-06-08] MEDS: QUEtiapine FUMARATE 200 MG TAB PO SCH (21:13)
[2022-06-08] MEDS: LACTULOSE SYRUP 20 GM/30 ML UDC PO SCH (21:13)
[2022-06-09 06:53] LABS: Hematocrit (blood only) 37.3 % (37.0-47.0); Hemoglobin 12.4 g/dl (12.0-16.0); Mean Corpuscular Hemoglobin 30.8 pg (25.0-34.0); Mean Corpuscular Hgb Conc 33.2 g/dL (32.0-36.0); Mean Corpuscular Volume 92.6 fL (80.0-100.0); Mean Platelet Volume 8.5 fL (9.4-12.4); Platelet Count 283 K/uL (130-400); RDW Coefficient of Variation 13.5 % (11.5-14.5); Red Blood Count 4.03 M/uL (4.20-5.40); White Blood Count 6.98 K/ul (4.8-10.8)
[2022-06-09 07:29] LABS: Albumin Globulin Ratio 1.3 (0.9-2); Albumin Level 3.3 gm/dl (3.4-5.0); BUN Creatinine Ratio 11.5 (10-20); Bilirubin,Total 0.4 mg/dl (0.2-1.0); Calcium 8.6 mg/dl (8.6-10.3); Creatinine Clr Calc Pharmacy 65.2 ml/min; Est GFR (African American) 109.5 ml/min; Est GFR (Non-African American) 94.5 ml/min; Globulin 2.6 gm/dl (2.5-4.0); Potassium 4.2 mmol/L (3.5-5.1); Total Protein 5.9 gm/dl (6.0-8.3)
[2022-06-09] MEDS: ALBUT/IPRATROP 3MG/0.5MG NEB 3 ML VIAL NEB SCH ×4 (08:10→20:35)
[2022-06-09] MEDS: CLOTRIMAZOLE 10 MG TROCHE BUCCAL SCH ×5 (08:42→22:38)
[2022-06-09] MEDS: PANTOprazole 40 MG TAB PO SCH (08:43)
[2022-06-09] MEDS: UMECLIDINIUM/VILANTEROL 62.5/25MCG 7 PUFFS/INHALER INH SCH (08:43)
[2022-06-09] MEDS: VENLAFAXINE HCL XR 150 MG CAPXR PO SCH (08:43)
[2022-06-09] MEDS: amLODIPine BESYLATE 5 MG TAB PO SCH (08:44)
[2022-06-09] MEDS: LACTULOSE SYRUP 20 GM/30 ML UDC PO SCH ×3 (08:44→20:22)
[2022-06-09] MEDS: CLOPIDOGREL BISULFATE 75 MG TAB PO SCH (08:44)
[2022-06-09] MEDS: MAGNESIUM OXIDE 400 MG TAB PO SCH (08:45)
[2022-06-09] MEDS: FLUTICASONE FUROATE 200MCG 14 PUFFS/INHALER INH SCH (08:45)
[2022-06-09] MEDS: NICOTINE 21 MG/24 HR TDSY TD SCH (08:45)
[2022-06-09] MEDS: LOSARTAN POTASSIUM 25 MG TAB PO SCH (08:45)
[2022-06-09] MEDS: VENLAFAXINE HCL XR 75 MG CAPXR PO SCH (08:46)
[2022-06-09] MEDS ORDERED: FLUTICASONE PROPIONATE NA SPR 16 GM BTL NAE PRN (09:00)
[2022-06-09] MEDS: AZITHROMYCIN 250 MG TAB PO SCH (09:30)
[2022-06-09] MEDS ORDERED: LORazepam 2 MG/1 ML VIAL IV ONE ×2 (11:03→18:35)
--- NOTE | 2022-06-09 14:53 | Gastrointestinal Consultation ---
Date of Consultation June 09, 2022 Assessment & Plan (1) Intractable abdominal pain: (2) Anxiety: (3) Gastroparesis: (4) Chronic constipation: Plan MRCP today to r/o choledocholithiasis. Pt is very anxious. One 2mb IV Ativan was ordered to help pt relax to cooperate w MRCP. Will await results of MRCP, if (-) then no plans for endoscopy. Continue antiemetics. Continue TID lactulose. Will consider additional laxatives if MRCP (-). Recheck LFTs tomorrow. Supervising Physician Co-Signing Physician Notes I interviewed and examined pt, reviewed chart and labs. Pt with chronic abdominal pain, now seen for chronic abdominal pain. Her LFTs are mildly increased. Suspect DILI or CBD stone. Will request MRCP; if negative, then please follow LFT's, hold tylenol. History of Present Illness Reason for Consultation: Abdominal pain, elevated LFTs Requesting Physician: Dr. Rodriguez Attending Physician: Nemesio Rodriguez MD History of Present Illness Ms. Dahiana Reed is a 66 yr old female pt of Dr. Choi ([facility]) wi a hx of borderline personality, COPD, pre-DM, osteoporosis, GERD, HTN, sleep apnea, increased alcohol intake, gastroparesis. She has a hx of chronic abd pain and presented to the ED yesterday for worsened pain. When asked about the character of the chronic pain vs current pain, she reports that the chronic pain is LUQ (placed her hand over that area to describe) and that it is now "everywhere," and "worse." Her LFTs were noted to be higher today that yesterday and lipase was normal. CTAP w minimal post cholecystectomy bile duct dilation (approx 8mm), otherwise normal. Pt was seen/examined w Dr. Lynch and we are awaiting MRCP. On exam she is visibly anxious. She also carries a hx of chronic constipation [facility] which [facility] last fall - since then w Liana Garza NPin the office. She has had multiple prior CTs of the abd/pelvis including five in 2021 all w constipation, none w other abnormalities. Prior attempts at colonoscopy aborted due to stool in the rectum. most recent EGD in 2021 w hiatal hernia, gastritis, patulous pylorus. On exam, she is crying, anxious/fearful but otherwise appears well. Regarding her hx of constipation, she is unable to tell me when her most recent BM was but gave herself enema a few days ago w brown return. Allergies Allergy/AdvReac Type Severity Reaction Status Date / Time aspirin Allergy Severe EDEMA Verified 06/08/22 15:08 AIRWAY, ABD PAIN haloperidol [From Haldol] Allergy Severe PER PT Verified 06/08/22 15:08 "STOPS BREATHING".--PER [facility] latex Allergy Intermediate Contact Verified 06/08/22 15:08 Dermatitis--ITCHING-GLOVES/PLASTIC TAPE pistachio nut Allergy Intermediate Hives Verified 06/08/22 15:08 sulfamethoxazole Allergy Mild ITCHING Verified 06/08/22 15:08 [From Bactrim] trimethoprim [From Bactrim] Allergy Mild ITCHING Verified 06/08/22 15:08 whey Allergy Unknown POSITIVE Verified 06/08/22 15:08 ALLERGY TEST amoxicillin [From Augmentin] AdvReac Intermediate NAUSEA/VOMI Verified 06/08/22 15:08 TING ciprofloxacin AdvReac Intermediate WEAKNESS/TR Verified 06/08/22 15:08 EMORS/NAUSE A clavulanic acid AdvReac Intermediate NAUSEA/VOMI Verified 06/08/22 15:08 [From Augmentin] TING hydromorphone [From Dilaudid] AdvReac Intermediate HALLUCINATI Verified 06/08/22 15:08 ONS ibuprofen AdvReac Intermediate Abdominal Verified 06/08/22 15:08 Pain levofloxacin AdvReac Intermediate Abdominal Verified 06/08/22 15:08 Pain metoclopramide [From Reglan] AdvReac Intermediate LEG Verified 06/08/22 15:08 MOVEMENTS/RESTLESS mirtazapine [From Remeron] AdvReac Intermediate MUSCLE Verified 06/08/22 15:08 PAIN/LEGS RESTLESS moxifloxacin [From Avelox] AdvReac Intermediate NAUSEA/VOMI Verified 06/08/22 15:08 TING naproxen AdvReac Intermediate Abdominal Verified 06/08/22 15:08 Pain NSAIDS (Non-Steroidal AdvReac Intermediate Abdominal Verified 06/08/22 15:08 Anti-Inflamma Pain roflumilast AdvReac Intermediate UNABLE TO Verified 06/08/22 15:08 TOLERATE Home Medications Medication Instructions Recorded Confirmed Type pantoprazole 40 mg tablet,delayed 40 mg PO DAILY 08/29/19 06/08/22 History release venlafaxine 150 mg tablet,extended 450 mg PO DAILY 08/31/19 06/08/22 History release 24 hr albuterol sulfate 90 mcg/actuation 2 puff inhalation Q4H PRN 06/08/22 06/08/22 History aerosol inhaler BREATHING PROBLEMS--PER [facility] amlodipine 5 mg tablet 5 mg PO DAILY 06/08/22 06/08/22 History atorvastatin 80 mg tablet 40 mg PO BID 06/08/22 06/08/22 History azithromycin 250 mg tablet 250 mg PO 3XWK 06/08/22 06/08/22 History budesonide 160 mcg-glycopyr 9 2 inh inhalation AMPM 06/08/22 06/08/22 History mcg-formot 4.8 mcg/actuation HFA inhaler ([employer]) clonazepam 0.5 mg tablet 0.5 mg PO TID PRN Anxiety 06/08/22 06/08/22 History clopidogrel 75 mg tablet 75 mg PO DAILY 06/08/22 06/08/22 History clotrimazole 10 mg liya 10 mg PO 5XD 06/08/22 06/08/22 History fluticasone propionate 50 2 spray intranasal DAILY PRN 06/08/22 06/08/22 History mcg/actuation nasal Congestion spray,suspension ipratropium 0.5 mg-albuterol 3 mg 3 ml inhalation Q4H PRN Shortness 06/08/22 06/08/22 History (2.5 mg base)/3 mL nebulization Of Breath Or Wheezing soln losartan 25 mg tablet 25 mg PO DAILY 06/08/22 06/08/22 History magnesium oxide 400 mg (241.3 mg 400 mg PO QAM 06/08/22 06/08/22 History magnesium) tablet ciocxvcx-tum-smbla acid 500 1 tab PO DAILY 06/08/22 06/08/22 History mcg-lycopene 300 mcg-lutein 250 mcg tablet ondansetron 4 mg disintegrating 4 mg PO DIRECTED PRN 06/08/22 06/08/22 History tablet NAUSEA/VOMITING quetiapine 200 mg tablet 200 mg PO HS 06/08/22 06/08/22 History sodium chloride 1,000 mg soluble 1,000 mg PO QAM 06/08/22 06/08/22 History tablet Patient History Medical History Atherosclerosis Bladder infection Borderline personality disorder Cervical stenosis of spine Chronic constipation Chronic hyponatremia Chronic respiratory failure with hypoxia Chronic ulcerative ileocolitis COPD (chronic obstructive pulmonary disease) Coronary artery calcification Depression with anxiety Essential hypertension Fibrocystic breast changes Gastroparesis GERD (gastroesophageal reflux disease) Hepatitis Age 14 likely hepatitis A Hiatal hernia History of electroconvulsive therapy Hyperlipidemia Hypertension ABRAHAM (obstructive sleep apnea) Osteoporosis Restless leg syndrome Tobacco use Surgical History (Updated 06/08/22 @ 16:18 by Sally Dias PA-C) History of appendectomy History of cholecystectomy History of colonoscopy History of esophagogastroduodenoscopy (EGD) History of hernia repair Reported history diaphragm hernia repair History of hysterectomy History of neck surgery May [address]CD[address] C5-6 [address] Patel Family History Sister Tremor Brother Tremor Social History (Updated 06/08/22 @ 16:02 by Sally Dias PA-C) Smoking Status: Current every day smoker Tobacco Type: Cigarettes Cigarettes Per Day: 1ppd x 50 years; Hx Alcohol Use: No Hx Substance Use: No Preferred Language: Nepali Communication Ability: Effective Ammunition Officer Required: No Beliefs That Will Affect Care: None Current Living Situation: Family Current Living Situation Comment: home with son Feels Safe at Home: Yes Assistive Devices: Oxygen - Continuous Review of Systems Review of Systems: ROS: Gen: Denies weakness, fevers, weight loss Eyes: No eye redness, or pain, no recent vision changes Resp: No SOB, no cough Cardio: No palpitations/irregular beats, no chest pain GI: As per HPI, otherwise (-) : Denies pain on urination Skin: No jaundice, itching or new rashes A total of 12 systems were reviewed, all others (-). Physical Exam Constitutional: + thin and cooperative Eyes: PERRL, conjunctivae normal, anicteric sclerae ENMT: external ear and nose normal, oropharynx normal Neck: trachea midline, no thyromegaly Respiratory: normal respiratory effort, lungs clear to auscultation Cardiovascular: RRR, no murmur, no edema Gastrointestinal (Abdomen): Thin, non-distended, normal BS, tender over every area of the abdomen. Of note also c/o burning and was tender on touching anywhere on both legs Musculoskeletal: no cyanosis or clubbing, extremities motor strength 5/5 Skin: no rashes, warm and dry Neurologic: PERRL, EOMI, accommodation nl, no face palsy, no dysarthria moves all extremities and awake; not confused Psychiatric: Orientation: oriented x 3 Apperance: + disheveled (somewhat) Eye Contact: + fair eye contact Speech: + pressured speech (somewhat) Affect: + anxious affect and + tearful affect Lymphatic: no cervical or axillary lymphadenopathy Results & Data Vital Signs (Past 12 Hours) Vital Signs Temp Pulse Pulse Resp BP Pulse Ox O2 Del Method 06/09/22 11:59 36.7 C 72 18 137/73 94 Nasal Cannula 06/09/22 09:00 Nasal Cannula 06/09/22 08:11 83 19 97 Nasal Cannula 06/09/22 07:44 36.5 C 71 18 149/75 H 96 Nasal Cannula 06/09/22 05:40 70 06/09/22 03:53 36.7 C 75 18 129/65 98 Nasal Cannula O2 Flow Rate 06/09/22 11:59 2 06/09/22 09:00 2 06/09/22 08:11 2 06/09/22 07:44 2 06/09/22 05:40 06/09/22 03:53 2 Laboratory Results T Bili 0.5->0.4; AST 27->76; ALT 53->132, Alk Phos 90->118, Lipase normal. WBC 6.9, Hb 12.4, Hct 37.3, Plts 283, Na 138, K 4.2, Cl 109, CO2 25, BUN 7, Cr 0.61. Diagnostic Findings CTAP w IV 06/08/22: 1. No acute abnormalities to explain persistent diffuse abdominal pain. 2. Additional findings as above.
--- NOTE | 2022-06-09 15:39 | Hospitalist Progress Note ---
Date of Service June 09, 2022 Assessment & Plan (1) Abdominal pain: (2) Chronic constipation: (3) Gastroparesis: Plan: Patient is 66 yr female with H/O Chronic abdominal pain, gastroparesis, chronic constipation presented to ER with complaint of ongoing abdominal pain, constipation x 1 week. Tried home enema yesterday without relief Gastroparesis Chronic intractable abdominal pain Chronic constipation Transaminitis H/O Colonoscopy 08/13/2021: Poor colon prep with poor visualization H/O EGD 08/13/2021: Gastritis, Hill grade IV gastroesophageal valve MR defecography was attempted however unable to be completed secondary to patient's somnolence per outpatient chart review --CT ABD:No acute abnormalities to explain persistent diffuse abdominal pain. --MRCP pending -Tox Screen:pending Continue lactulose, antiemetics as needed Monitor LFTs Avoid hepatotoxic agents as able Appreciate GI input Further management based on MRCP results (4) GERD (gastroesophageal reflux disease): Plan: Continue PPI Previously prescribed Carafate-noncompliant due to intolerance (5) Chronic respiratory failure with hypoxia: (6) COPD (chronic obstructive pulmonary disease): Plan: Chronic oxygen dependency--on 2 L at baseline CXR: No acute infiltrate No signs of acute exacerbation Continue neb treatments Continue home inhalers On chronic Zithromax Thursday and Fridays Follows with [facility] pulmonology (7) Depression with anxiety: (8) Borderline personality disorder: Plan: Continue Seroquel Patient Effexor Rx is for 3 tabs daily (450mg daily). Informed by our pharmacist max dose is 375 mg. Will dose 375 mg daily for now. Currently on clonazepam. Previously on diazepam. Patient requesting to be switched back to diazepam Will hold home clonazepam and restart diazepam Psychiatry consulted PDMP reviewed. Clonazepam 0.5 mg quantity 90 for 30-day supply filled on 05/30/2022 and 21 quantity for 7 days supply filled on 05/23/2022. Diazepam 2 mg quantity 120 for 30-day supply filled on 05/19/2022 and 04/21/2022. Patient is to follow-up with psychiatry: Guillermo Santos on 06/12/2022 Await for Psych Input (9) Hypertension: Plan: Continue amlodipine, losartan (10) Thrush: Plan: Recently diagnosed thrush and started clotrimazole troches 06/05/2022 Continue clotrimazole troches (11) Chronic hyponatremia: Plan: Sodium 138 Has been on sodium tabs at home BP elevated--Hold Salt tabs for now Monitor BP, Sodium levels (12) Hyperlipidemia: Plan: On atorvastatin--noncompliant due to intolerance (13) Coronary artery calcification: Plan: Coronary artery calcifications noted on CT scan Followed with [facility] cardiology Continue Plavix (14) ABRAHAM (obstructive sleep apnea): Plan: Does not use CPAP or BiPAP (15) Tobacco use: Plan: Smoking cessation recommended Nicotine patch DVT Px Lovenox SQ Code Status Full code Admission and Anticipated Discharge Date Admission Date: June 08, 2022 Subjective And is seen and examined at bedside States having chronic abdominal pain, chronic cough and constipation Feels anxious Denies any chest pain, dyspnea, dizziness Reports nausea but no vomiting Discussed with GI today No other complaints Review of Systems Review of Systems: All systems reviewed & are unremarkable except as noted in Subjective Physical Exam Physical Exam: Physical Exam: Vitals signs as noted above General Appearance:Thin, Chronic ill, no apparent distress Head: normocephalic, Atraumatic Eyes: normal inspection, EOMI Neck: supple, Trachea midline Respiratory/Chest: Decreased breath sounds, CTA, No accessory muscle use Cardiovascular: S1, S2, No murmur Abdomen/GI:Soft, Non tender, Bowel sounds present Extremities/Musculoskeletal:normal inspection, no edema Neurologic/Psych:AAOX3, grossly no focal neurological deficits, +Anxious Skin: normal color, warm Results & Data Results & Data Vital Signs (Past 12 Hours) Vital Signs Temp Pulse Pulse Resp BP Pulse Ox O2 Del Method 06/09/22 15:14 78 15 95 Nasal Cannula 06/09/22 11:59 36.7 C 72 18 137/73 94 Nasal Cannula 06/09/22 09:00 Nasal Cannula 06/09/22 08:11 83 19 97 Nasal Cannula 06/09/22 07:44 36.5 C 71 18 149/75 H 96 Nasal Cannula 06/09/22 05:40 70 06/09/22 03:53 36.7 C 75 18 129/65 98 Nasal Cannula O2 Flow Rate 06/09/22 15:14 2 06/09/22 11:59 2 06/09/22 09:00 2 06/09/22 08:11 2 06/09/22 07:44 2 06/09/22 05:40 06/09/22 03:53 2 Laboratory Results Short CBC 06/09/22 Range/Units 05:59 WBC 6.98 (4.8-10.8) K/ul Hgb 12.4 (12.0-16.0) g/dl Hct 37.3 (37.0-47.0) % Plt Count 283 (130-400) K/uL BMP 06/09/22 05:59 Sodium 138 Potassium 4.2 Chloride 109 H Carbon Dioxide 25 BUN 7 Creatinine 0.61 Glucose 78 Calcium 8.6 Liver Function 06/09/22 Range/Units 05:59 Total Bilirubin 0.4 (0.2-1.0) mg/dl AST 76 H (13-39) U/L ALT 132 H (7-52) U/L Alkaline Phosphatase 118 H (34-104) U/L Albumin 3.3 L (3.4-5.0) gm/dl
[2022-06-09] MEDS: ENOXAPARIN INJ 40 MG/0.4 ML SYR SQ SCH (18:05)
--- NOTE | 2022-06-09 18:25 | Psychiatric Consultation ---
Date of Consultation June 09, 2022 Impression / Recommendations Impression 66 y/o F with apparently long history of mood symptoms and possible borderline personality disorder who presents with intense yet vague bodily concerns. Most of what she tells me seems either to be accurate but causing her considerably more distress than seems warranted or to be conflation of things unrelated except by time (I suspect she was on memantine, but not for neck pain). She appears to focus on certain concerns while ignoring others and seems to recall previous medications as much more helpful or problematic than she'd reported contemporaneously. Her reports of the intended uses of medications are not reliable. 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 (1) Illness anxiety disorder: Plan Recommend: * change diazepam to 5 mg Q8 Hr (scheduled) * limit providing ambiguous health information - pt will interpret something such as "slightly high" as representing a problem and is likely to ignore if told later that something has normalized * keep in mind that pt may well have a dementing process and certainly appears to remember health information in a skewed fashion, so maintaining a focus on one problem at a time, to the degree possible, would be helpful * avoid attempting to address all of pt's health concerns, since it's likely new ones will keep popping up * transition pt to outpatient care as soon as this can be done safely Psych History Identifying Data JACE LAY is a 66-year-old F with a history of major depression and borderline personality disorder, admitted on 06/08/2022 for intractable abdominal pain. Consult is by the hospitalist service for anxiety. Chief Complaint "Something really bad is wrong with me". History of Present Illness 66 y/o F admitten 06/08/2022 with complaint of intractable abdominal pain. She tells me her main concerns are that she has "terrible pain right here" (circling her hand palm-down over her entire abdomen) and a "terrible headache in my neck". Complaints of abdominal pain and constipation appear to date to at least 20 years ago. She says these started when she was switched from diazepam to clonazepam. The reasons for this switch are unclear; pt says the diazepam "had been working great" but that she requested a switch to clonazepam out of the vague sense that "maybe it could work better". Review of the record reveals a primary care note from July 2019 in which she's quoted as saying diazepam had been prescribed by her psychiatrist for tremor but wasn't helping. She relates a broad range of other current health concerns including hyponatremia (currently normal, though she says she was told otherwise); "abnormal liver tests" (elevated alkaline phosphatase and transaminases) for which she can imagine no explanation, though the July 2019 PCP note includes a diagnosis of hepatitis; "some kind of growth in my neck" of which she says she was recently informed. She has obstructive sleep apnea for which she doesn't use CPAP (and does not see this as a problem). She reports 2 recent "hospitalizations" (that could be admissions or ED visits) in [facility] for RSV. She denies a history of depression (despite fairly clear documentation of such, as well as multiple trials of medications likely only to be used for mood, such as lithium) and omits when specifically asked about psychiatric medication that she has been taking venlafaxine XR 450 mg daily and quetiapine 100 mg QHS. Pt tells me she "used to take something that started with M" for her neck pain but that she was recently told it was an Alzheimer's drug (so possibly memantine) and it was stopped. She tells me it worked very well for her neck pain. Of note is that old brain imaging shows white matter abnormalities and that she was seen as having some cognitive deficits 3 years ago. Her urine toxicology was positive for opioids, but because she was given morphine and hydromorphone in our ED yesterday and morphine here on the , no inferences can be drawn from that. Past Psychiatric History Previous Psych History: Very murky. Old PCP notes suggest Dx of major depression and borderline personality disorder and refer to her having been on lithium that was stopped due to tremor Previous Psych Admissions: denies Do You Have Access To A Gun?: No History of Previous Suicide Attempt: No Allergies Allergy/AdvReac Type Severity Reaction Status Date / Time aspirin Allergy Severe EDEMA Verified 06/08/22 15:08 AIRWAY, ABD PAIN haloperidol [From Haldol] Allergy Severe PER PT Verified 06/08/22 15:08 "STOPS BREATHING".--PER [facility] latex Allergy Intermediate Contact Verified 06/08/22 15:08 Dermatitis--ITCHING-GLOVES/PLASTIC TAPE pistachio nut Allergy Intermediate Hives Verified 06/08/22 15:08 sulfamethoxazole Allergy Mild ITCHING Verified 06/08/22 15:08 [From Bactrim] trimethoprim [From Bactrim] Allergy Mild ITCHING Verified 06/08/22 15:08 whey Allergy Unknown POSITIVE Verified 06/08/22 15:08 ALLERGY TEST amoxicillin [From Augmentin] AdvReac Intermediate NAUSEA/VOMI Verified 06/08/22 15:08 TING ciprofloxacin AdvReac Intermediate WEAKNESS/TR Verified 06/08/22 15:08 EMORS/NAUSE A clavulanic acid AdvReac Intermediate NAUSEA/VOMI Verified 06/08/22 15:08 [From Augmentin] TING hydromorphone [From Dilaudid] AdvReac Intermediate HALLUCINATI Verified 06/08/22 15:08 ONS ibuprofen AdvReac Intermediate Abdominal Verified 06/08/22 15:08 Pain levofloxacin AdvReac Intermediate Abdominal Verified 06/08/22 15:08 Pain metoclopramide [From Reglan] AdvReac Intermediate LEG Verified 06/08/22 15:08 MOVEMENTS/RESTLESS mirtazapine [From Remeron] AdvReac Intermediate MUSCLE Verified 06/08/22 15:08 PAIN/LEGS RESTLESS moxifloxacin [From Avelox] AdvReac Intermediate NAUSEA/VOMI Verified 06/08/22 15:08 TING naproxen AdvReac Intermediate Abdominal Verified 06/08/22 15:08 Pain NSAIDS (Non-Steroidal AdvReac Intermediate Abdominal Verified 06/08/22 15:08 Anti-Inflamma Pain roflumilast AdvReac Intermediate UNABLE TO Verified 06/08/22 15:08 TOLERATE Home Medications Medication Instructions Recorded Confirmed Type pantoprazole 40 mg tablet,delayed 40 mg PO DAILY 08/29/19 06/08/22 History release venlafaxine 150 mg tablet,extended 450 mg PO DAILY 08/31/19 06/08/22 History release 24 hr albuterol sulfate 90 mcg/actuation 2 puff inhalation Q4H PRN 06/08/22 06/08/22 History aerosol inhaler BREATHING PROBLEMS--PER [facility] amlodipine 5 mg tablet 5 mg PO DAILY 06/08/22 06/08/22 History atorvastatin 80 mg tablet 40 mg PO BID 06/08/22 06/08/22 History azithromycin 250 mg tablet 250 mg PO 3XWK 06/08/22 06/08/22 History budesonide 160 mcg-glycopyr 9 2 inh inhalation AMPM 06/08/22 06/08/22 History mcg-formot 4.8 mcg/actuation HFA inhaler (Breztri Aerosphere) clonazepam 0.5 mg tablet 0.5 mg PO TID PRN Anxiety 06/08/22 06/08/22 History clopidogrel 75 mg tablet 75 mg PO DAILY 06/08/22 06/08/22 History clotrimazole 10 mg liya 10 mg PO 5XD 06/08/22 06/08/22 History fluticasone propionate 50 2 spray intranasal DAILY PRN 06/08/22 06/08/22 History mcg/actuation nasal Congestion spray,suspension ipratropium 0.5 mg-albuterol 3 mg 3 ml inhalation Q4H PRN Shortness 06/08/22 06/08/22 History (2.5 mg base)/3 mL nebulization Of Breath Or Wheezing soln losartan 25 mg tablet 25 mg PO DAILY 06/08/22 06/08/22 History magnesium oxide 400 mg (241.3 mg 400 mg PO QAM 06/08/22 06/08/22 History magnesium) tablet wfrzcyvz-ydi-qxnap acid 500 1 tab PO DAILY 06/08/22 06/08/22 History mcg-lycopene 300 mcg-lutein 250 mcg tablet ondansetron 4 mg disintegrating 4 mg PO DIRECTED PRN 06/08/22 06/08/22 History tablet NAUSEA/VOMITING quetiapine 200 mg tablet 200 mg PO HS 06/08/22 06/08/22 History sodium chloride 1,000 mg soluble 1,000 mg PO QAM 06/08/22 06/08/22 History tablet Patient History Medical History Atherosclerosis Bladder infection Borderline personality disorder Cervical stenosis of spine Chronic constipation Chronic hyponatremia Chronic respiratory failure with hypoxia Chronic ulcerative ileocolitis COPD (chronic obstructive pulmonary disease) Coronary artery calcification Depression with anxiety Essential hypertension Fibrocystic breast changes Gastroparesis GERD (gastroesophageal reflux disease) Hepatitis Age 14 likely hepatitis A Hiatal hernia History of electroconvulsive therapy Hyperlipidemia Hypertension ABRAHAM (obstructive sleep apnea) Osteoporosis Restless leg syndrome Tobacco use Surgical History (Updated 06/08/22 @ 16:18 by Sally Dias PA-C) History of appendectomy History of cholecystectomy History of colonoscopy History of esophagogastroduodenoscopy (EGD) History of hernia repair Reported history diaphragm hernia repair History of hysterectomy History of neck surgery May [address] ACDF C5-6 [address] Patel Family History Sister Tremor Brother Tremor Social History (Updated 06/08/22 @ 16:02 by Sally Dias PA-C) Smoking Status: Current every day smoker Tobacco Type: Cigarettes Cigarettes Per Day: 1ppd x 50 years; Hx Alcohol Use: No Hx Substance Use: No Preferred Language: Pashto Communication Ability: Effective Cable Spooler Required: No Beliefs That Will Affect Care: None Current Living Situation: Family Current Living Situation Comment: home with son Feels Safe at Home: Yes Assistive Devices: Oxygen - Continuous Physical Exam Psychiatric: Orientation: alert, oriented to person, oriented to place, oriented to time and cooperative Apperance: appropriately dressed and appropriately groomed Eye Contact: + fair eye contact Motor Behavior: no abnormal motor movements Speech: normal rate/rhythm/volume of speech Affect: + anxious affect Mood: + anxious mood Thought Process: + circumstantial thought process and + tangential thought process Thought Content: + preoccupation (health concerns) and + cognitive distortions Suicidal Thoughts: denies suicidal thoughts, denies suicidal plan and denies suicidal intent Homicidal Thoughts: denies homicidal thoughts Hallucinations: no auditory hallucinations and no visual hallucinations memory even for fairly recent events is questionable in that her ability to provide useful detail is very limited Estimated Intelligence: average estimated intelligence Insight: + impaired insight Judgment: + limited judgement Vital Signs (Past 24 Hours): Last Vital Signs Temp 36.9 C 06/09/22 16:04 Pulse 78 06/09/22 16:04 Resp 20 06/09/22 16:04 BP 158/67 H 06/09/22 16:04 Pulse Ox 95 06/09/22 16:04 O2 Del Method Nasal Cannula 06/09/22 16:04 O2 Flow Rate 2 06/09/22 16:04 Review of Systems Psychiatric: + abnormal sleep pattern, + anxiety and + difficulty concentrating; no depression (despite substantial evidence to the contrary), no hopelessness, no suicidal ideation, no paranoia and no hallucinations Results & Data (PSY) Medications Administered Albuterol (Albut/Ipratrop 3mg/0.5mg Neb 3 Ml Vial) 3 ml NEB QIDR [facility]; Protocol Stop: 07/08/22 18:59 Last Admin: 06/09/22 15:14 Dose: 3 ml Documented By: [id number] Admin: 06/09/22 11:48 Dose: Not Given Documented By: [id number] Admin: 06/09/22 08:10 Dose: 3 ml Documented By: [id number] Admin: 06/08/22 19:21 Dose: 3 ml Documented By: MANISH Amlodipine Besylate (Amlodipine Besylate 5 Mg Tab) 5 mg PO DAILY [facility] Stop: 07/09/22 08:59 Last Admin: 06/09/22 08:44 Dose: 5 mg Documented By: KENTON Azithromycin (Azithromycin 250 Mg Tab) 250 mg PO MoWeFr@0900 [facility] Stop: 07/09/22 08:59 Last Admin: 06/09/22 09:30 Dose: 250 mg Documented By: KENTON Clopidogrel Bisulfate (Clopidogrel Bisulfate 75 Mg Tab) 75 mg PO DAILY [facility] Stop: 07/09/22 08:59 Last Admin: 06/09/22 08:44 Dose: 75 mg Documented By: KENTON Clotrimazole (Clotrimazole 10 Mg Liya) 10 mg BUCCAL [id number] [facility] Stop: 06/18/22 17:14 Last Admin: 06/09/22 16:05 Dose: Not Given Documented By: Admin: 06/09/22 14:09 Dose: Not Given Documented By: Admin: 06/09/22 08:42 Dose: 10 mg Documented By: Admin: 06/08/22 22:37 Dose: 10 mg Documented By: Admin: 06/08/22 19:21 Dose: 10 mg Documented By: Admin: 06/08/22 18:04 Dose: 10 mg Documented By: PEDRO PABLO Diazepam (Diazepam 2 Mg Tablet) 4 mg PO BID PRN PRN Reason: Anxiety Stop: 07/08/22 16:51 Last Admin: 06/08/22 21:13 Dose: 4 mg Documented By: MANISH Enoxaparin Sodium (Enoxaparin Inj 40 Mg/0.4 Ml Syr) 40 mg SQ Q24H [facility] Stop: 07/08/22 16:59 Last Admin: 06/09/22 18:05 Dose: Not Given Documented By: Admin: 06/08/22 18:34 Dose: 40 mg Documented By: MANISH Fluticasone Furoate (Fluticasone Furoate 200mcg 14 Puffs/Inhaler) 1 puffs INH DAILY [facility]; Protocol Stop: 07/09/22 08:59 Last Admin: 06/09/22 08:45 Dose: 1 puffs Documented By: KENTON Lactulose (Lactulose Syrup 20 Gm/30 Ml Udc) 20 gm PO TID [facility] Stop: 07/08/22 20:59 Last Admin: 06/09/22 14:09 Dose: Not Given Documented By: Admin: 06/09/22 08:44 Dose: 20 gm Documented By: Admin: 06/08/22 21:13 Dose: 20 gm Documented By: MANISH Losartan Potassium (Losartan Potassium 25 Mg Tab) 25 mg PO DAILY [facility] Stop: 07/08/22 16:59 Last Admin: 06/09/22 08:45 Dose: 25 mg Documented By: Admin: 06/08/22 18:06 Dose: 25 mg Documented By: PEDRO PABLO Magnesium Oxide (Magnesium Oxide 400 Mg Tab) 400 mg PO QAM [facility] Stop: 07/09/22 08:59 Last Admin: 06/09/22 08:45 Dose: 400 mg Documented By: KENTON Miscellaneous (Remove Nicoderm Patch) 1 each N/A DAILY@0859 [facility] Stop: 07/09/22 08:58 Last Admin: 06/09/22 08:42 Dose: 1 each Documented By: KENTON Nicotine (Nicotine 21 Mg/24 Hr Tdsy) 21 mg TD QAM [facility] Stop: 07/08/22 16:59 Last Admin: 06/09/22 08:45 Dose: 21 mg Documented By: Admin: 06/08/22 17:03 Dose: 21 mg Documented By: MANISH Pantoprazole Sodium (Pantoprazole 40 Mg Tab) 40 mg PO DAILY [facility] Stop: 07/09/22 08:59 Last Admin: 06/09/22 08:43 Dose: 40 mg Documented By: KENTON Quetiapine Fumarate (Quetiapine Fumarate 200 Mg Tab) 200 mg PO HS [facility] Stop: 07/08/22 20:59 Last Admin: 06/08/22 21:13 Dose: 200 mg Documented By: MANISH Umeclidinium/Vilanterol (Umeclidinium/Vilanterol 62.5/25mcg 7 Puffs/Inhaler) 1 puffs INH DAILY [facility]; Protocol Stop: 07/09/22 08:59 Last Admin: 06/09/22 08:43 Dose: 1 puffs Documented By: KENTON Venlafaxine HCl (Venlafaxine Hcl Xr 150 Mg Capxr) 300 mg PO DAILY [facility] Stop: 07/09/22 08:59 Last Admin: 06/09/22 08:43 Dose: 300 mg Documented By: KENTON Venlafaxine HCl (Venlafaxine Hcl Xr 75 Mg Capxr) 75 mg PO DAILY [facility] Stop: 07/09/22 08:59 Last Admin: 06/09/22 08:46 Dose: 75 mg Documented By: KENTON Coding Level of Care Code 04362 IN/OBS CONSULT LVL 4,60M Diagnoses Illness anxiety disorder F45.21 Time Spent (min) 75
--- NOTE | 2022-06-09 20:06 | Magnetic Resonance Report ---
MR MRCP HISTORY: 66 years-old Female el LFT, abd pain acute generalized abdominal pain with elevated LFTs COMPARISON: CT abdomen and pelvis 06/08/2022, 06/02/2022 TECHNIQUE: MRCP was obtained without the use of IV contrast according to institutional protocol. FINDINGS: Mild degenerative changes of the spine. The imaged lower chest appears unremarkable. Moderate colonic fecal retention. Questioned mild wall thickening involving the ascending colon, better seen on the c omparison CT study. No bowel obstruction or free fluid. Motion degraded exam. Cholecystectomy with in trahepatic and extrahepatic biliary ductal dilation redemonstrated. The common bile duct measures up to approximately 7 mm. No pancreatic ductal dilation, choledocholithiasis or pancreatic divisum. Ther e are a few questioned tiny sidebranch IPMN's within the pancreatic head measuring up to 4 mm. There are a few subcentimeter hepatic cysts present. IMPRESSION: 1. Motion degraded exam. 2. Cholecystectomy with mild biliary ductal dilation redemonstrated, likely secondary to postsurgical status. No choledocholithiasis identified. 3. Moderate colonic fecal retention. ACT 112: Negative or not required by law. The above report was generated using voice recognition software. It may contain grammatical, syntax o r spelling errors. Electronically signed by: Jae Alex M.D. 06/09/2022 8:04 PM
[2022-06-09] MEDS: QUEtiapine FUMARATE 200 MG TAB PO SCH (20:22)
[2022-06-09] MEDS: diazePAM 5 MG TABLET PO SCH (22:38)
[2022-06-10] MEDS: diazePAM 5 MG TABLET PO SCH ×3 (06:13→21:00)
[2022-06-10] MEDS: ALBUT/IPRATROP 3MG/0.5MG NEB 3 ML VIAL NEB SCH ×4 (07:33→19:36)
[2022-06-10] MEDS: LACTULOSE SYRUP 20 GM/30 ML UDC PO SCH ×3 (09:25→19:56)
[2022-06-10] MEDS: MAGNESIUM OXIDE 400 MG TAB PO SCH (09:25)
[2022-06-10] MEDS: amLODIPine BESYLATE 5 MG TAB PO SCH (09:26)
[2022-06-10] MEDS: CLOPIDOGREL BISULFATE 75 MG TAB PO SCH (09:26)
[2022-06-10] MEDS: LOSARTAN POTASSIUM 25 MG TAB PO SCH (09:26)
[2022-06-10] MEDS: VENLAFAXINE HCL XR 75 MG CAPXR PO SCH (09:26)
[2022-06-10] MEDS: VENLAFAXINE HCL XR 150 MG CAPXR PO SCH (09:27)
[2022-06-10] MEDS: CLOTRIMAZOLE 10 MG TROCHE BUCCAL SCH ×4 (09:27→19:56)
[2022-06-10] MEDS: PANTOprazole 40 MG TAB PO SCH (09:27)
[2022-06-10] MEDS: UMECLIDINIUM/VILANTEROL 62.5/25MCG 7 PUFFS/INHALER INH SCH (09:28)
[2022-06-10] MEDS: FLUTICASONE FUROATE 200MCG 14 PUFFS/INHALER INH SCH (09:28)
[2022-06-10] MEDS: NICOTINE 21 MG/24 HR TDSY TD SCH (09:29)
[2022-06-10] MEDS: DOCUSATE SODIUM 100 MG CAP PO SCH ×2 (09:34→19:56)
[2022-06-10 09:39] LABS: Albumin Globulin Ratio 1.2 (0.9-2); Albumin Level 3.5 gm/dl (3.4-5.0); BUN Creatinine Ratio 10.1 (10-20); Bilirubin,Total 0.5 mg/dl (0.2-1.0); Calcium 9.1 mg/dl (8.6-10.3); Creatinine Clr Calc Pharmacy 57.6 ml/min; Est GFR (African American) 105.1 ml/min; Est GFR (Non-African American) 90.7 ml/min; Globulin 2.9 gm/dl (2.5-4.0); Potassium 4.3 mmol/L (3.5-5.1); Total Protein 6.4 gm/dl (6.0-8.3)
[2022-06-10] MEDS: ACETAMINOPHEN 325 MG TAB PO PRN ×2 (10:10→19:55)
--- NOTE | 2022-06-10 11:38 | Gastroenterology Progress Note ---
Date of Service June 10, 2022 Assessment & Plan (1) Anxiety: (2) Gastroparesis: (3) Chronic constipation: Plan Pain likely secondary to gastroparesis and constipation. She may have passed a small amt of biliary sludge - LFTs are resolving. No evidence of choledocholithiasis, thus no indication for ERCP. Will arrange OP EUS and try to set up for Botox injection during that procedure for tx of gastroparesis. Orders placed in EPIC. Increase laxatives: continue lactulose, add Dulcolax 5mg daily or other stimulant laxative. Motegrity would be an ideal product for this pt as it is for tx of constipation and improves esophageal motility. Eventual OP colonoscopy. Pt follows in GI clinic w Liana Garza NP, and has an appt w her next week. [employer] Message sent -> Liana w update/recommendations. Admission and Anticipated Discharge Date Admission Date: June 09, 2022 Supervising Physician Co-Signing Physician Notes I performed a history and physical examination of the patient today, including specifically on physical exam - soft abdomen. I have discussed the patient's management with the advanced practitioner. Please refer to the nurse practitioner's note for the documented findings and plan of care. LFTs trending down. MRCP negative. Recommend: EUS as OP, consider trial of Pyloric Botox injection for her Gastroparesis. Laxative for now, need to start her on Motegrity. Recall GI if needed. Subjective 66 yr old female w acute on chronic abdominal pain, gastroparesis, GERD. Bump in LFTs yesterday, bile duct w mild dilation to approx 8mm on CT and MRCP w/o evidence of stones. Pain continues today. Axious. Review of Systems Review of Systems: ROS: Gen: +anxious Denies weakness, fevers, weight loss Eyes: No eye redness, or pain, no recent vision changes Resp: No SOB, no cough Cardio: No palpitations/irregular beats, no chest pain GI: As per HPI, otherwise (-) : Denies pain on urination Skin: No jaundice, itching or new rashes M/S: c/o neck pain A total of 12 systems were reviewed, all others (-). Physical Exam Constitutional: + thin and cooperative Eyes: PERRL, conjunctivae normal, anicteric sclerae ENMT: external ear and nose normal, oropharynx normal Neck: trachea midline, no thyromegaly Respiratory: normal respiratory effort, lungs clear to auscultation Cardiovascular: RRR, no murmur, no edema Gastrointestinal (Abdomen): Inspection/Auscultation: abdomen normal to inspection and normal bowel sounds; abdomen not distended Percus lars/Palpation: + abdomen tender (exquisitely tender over entire abdomen) and abdomen soft Musculoskeletal: no cyanosis or clubbing, extremities motor strength 5/5 Skin: no rashes, warm and dry Neurologic: PERRL, EOMI, accommodation nl, no face palsy, no dysarthria moves all extremities and awake; not confused Psychiatric: Orientation: oriented x 3 Eye Contact: good eye contact Speech: + pressured speech (somewhat) Affect: + anxious affect and + tearful affect Lymphatic: no cervical or axillary lymphadenopathy Results & Data Vital Signs (Past 12 Hours) Vital Signs Temp Pulse Pulse Resp BP Pulse Ox O2 Del Method 06/10/22 10:45 77 18 94 Room Air 06/10/22 07:55 36.6 C 81 18 164/84 H 91 Nasal Cannula 06/10/22 06:00 71 06/10/22 01:30 Nasal Cannula 06/10/22 04:00 36.5 C 77 20 143/79 H 96 Nasal Cannula 06/10/22 01:17 69 06/10/22 01:16 36.4 C L 67 18 133/77 95 Nasal Cannula O2 Flow Rate 06/10/22 10:45 06/10/22 07:55 2 06/10/22 06:00 06/10/22 01:30 2 06/10/22 04:00 2 06/10/22 01:17 06/10/22 01:16 2 Laboratory Results T Bili 0.4, AST 76->42 ALT 132->98, ALk Phos 118->131, lipase normal. Na 136, K 4.3, Cl 103, CO2 2, BUN 7, Cr 0.69, glucose 100. Diagnostic Findings MRCP 06/09/22: 1. Motion degraded exam. 2. Cholecystectomy with mild biliary ductal dilation redemonstrated, likely secondary to postsurgical status. No choledocholithiasis identified. 3. Moderate colonic fecal retention.
--- NOTE | 2022-06-10 14:07 | Ultrasound Report ---
ULTRASOUND SOFT TISSUES HEAD AND NECK CLINICAL HISTORY: Left supraclavicular mass. COMPARISON STUDY: No priors. FINDINGS: Real-time grayscale and color flow sonography of the left supraclavicular soft tissues is p erformed from the supraclavicular region to the submandibular region. No sonographic abnormality is i dentified. There is no mass lesion or fluid collection. Subcentimeter colloid cysts and a coarse calc ification noted in the left lobe of the thyroid gland. IMPRESSION: No left supraclavicular abnormality is identified as clinically queried. Dictated: 06/10/2022 1:49 PM Transcribed: 06/10/2022 2:04 PM Xavier [id number] Electronically signed by: Fermin Godinez M.D. 06/10/2022 2:06 PM
[2022-06-10] MEDS: POLYETHYLENE (MIRALAX) 17 GM PACK PO SCH (14:14)
[2022-06-10] MEDS: SENNA 8.6 MG TAB PO SCH (14:14)
[2022-06-10] MEDS: ENOXAPARIN INJ 40 MG/0.4 ML SYR SQ SCH (17:02)
--- NOTE | 2022-06-10 17:08 | Hospitalist Progress Note ---
Date of Service June 10, 2022 Assessment & Plan (1) Abdominal pain: (2) Chronic constipation: (3) Gastroparesis: Plan: Patient is 66 yr female with H/O Chronic abdominal pain, gastroparesis, chronic constipation presented to ER with complaint of ongoing abdominal pain, constipation x 1 week. Tried home enema yesterday without relief Gastroparesis Chronic intractable abdominal pain Chronic constipation Transaminitis H/O Colonoscopy 08/13/2021: Poor colon prep with poor visualization H/O EGD 08/13/2021: Gastritis, Hill grade IV gastroesophageal valve MR defecography was attempted however unable to be completed secondary to patient's somnolence per outpatient chart review --CT ABD:No acute abnormalities to explain persistent diffuse abdominal pain. --MRCP: Motion degraded exam. Cholecystectomy with mild biliary ductal dilation redemonstrated, likely secondary to postsurgical status. No choledocholithiasis identified. Moderate colonic fecal retention. Continue lactulose, antiemetics as needed Monitor LFTs Avoid hepatotoxic agents as able Appreciate GI input Advance diet as tolerated Continue bowel regimen Outpatient colonoscopy, endoscopic ultrasound with trial of pyloric Botox injection for gastroparesis as per GI Needs follow-up with GI upon discharge (4) GERD (gastroesophageal reflux disease): Plan: Continue PPI Previously prescribed Carafate-noncompliant due to intolerance (5) Chronic respiratory failure with hypoxia: (6) COPD (chronic obstructive pulmonary disease): Plan: Chronic oxygen dependency--on 2 L at baseline CXR: No acute infiltrate No signs of acute exacerbation Continue neb treatments Continue home inhalers On chronic Zithromax Thursday and Fridays Follows with [facility] pulmonology (7) Depression with anxiety: (8) Borderline personality disorder: Plan: Suspected Somatization disorder Continue Seroquel, venlafaxine Started on diazepam Patient is to follow-up with psychiatry: Guillermo Santos on 06/12/2022 Await for Psych Input (9) Hypertension: Plan: Continue amlodipine, losartan (10) Thrush: Plan: Recently diagnosed thrush and started clotrimazole troches 06/05/2022 Continue clotrimazole troches (11) Chronic hyponatremia: Plan: Sodium 138 Has been on sodium tabs at home BP elevated--Hold Salt tabs for now Monitor BP, Sodium levels (12) Hyperlipidemia: Plan: On atorvastatin--noncompliant due to intolerance (13) Coronary artery calcification: Plan: Coronary artery calcifications noted on CT scan Followed with [facility] cardiology Continue Plavix (14) ABRAHAM (obstructive sleep apnea): Plan: Does not use CPAP or BiPAP (15) Tobacco use: Plan: Smoking cessation recommended Nicotine patch DVT Px Lovenox SQ Code Status Full code Admission and Anticipated Discharge Date Admission Date: June 09, 2022 Subjective Patient is seen and examined at bedside Still has chronic abdominal pain, chronic cough and constipation Feels depressed Discussed with GI today Denies any chest pain, dyspnea, dizziness Review of Systems Review of Systems: All systems reviewed & are unremarkable except as noted in Subjective Physical Exam Physical Exam: Physical Exam: Vitals signs as noted above General Appearance:Thin, Chronic ill, no apparent distress Head: normocephalic, Atraumatic Eyes: normal inspection, EOMI Neck: supple, Trachea midline Respiratory/Chest: Decreased breath sounds, CTA, No accessory muscle use Cardiovascular: S1, S2, No murmur Abdomen/GI:Soft, Non tender, Bowel sounds present Extremities/Musculoskeletal:normal inspection, no edema Neurologic/Psych:AAOX3, grossly no focal neurological deficits, +Anxious Skin: normal color, warm Results & Data Results & Data Vital Signs (Past 12 Hours) Vital Signs Temp Pulse Pulse Resp BP Pulse Ox O2 Del Method 06/10/22 15:42 80 18 93 Nasal Cannula 06/10/22 14:10 82 06/10/22 15:29 36.7 C 78 20 133/74 93 Nasal Cannula 06/10/22 13:32 Nasal Cannula 06/10/22 11:42 36.7 C 76 20 156/77 H 92 Room Air 06/10/22 11:36 91 06/10/22 10:45 77 18 94 Room Air 06/10/22 07:55 36.6 C 81 18 164/84 H 91 Nasal Cannula 06/10/22 06:00 71 O2 Flow Rate 06/10/22 15:42 2 06/10/22 14:10 06/10/22 15:29 2 06/10/22 13:32 2 06/10/22 11:42 06/10/22 11:36 06/10/22 10:45 06/10/22 07:55 2 06/10/22 06:00 Laboratory Results BMP 06/10/22 07:56 Sodium 136 Potassium 4.3 Chloride 103 Carbon Dioxide 28 BUN 7 Creatinine 0.69 Glucose 100 H Calcium 9.1 Liver Function 06/10/22 Range/Units 07:56 Total Bilirubin 0.5 (0.2-1.0) mg/dl AST 42 H (13-39) U/L ALT 98 H (7-52) U/L Alkaline Phosphatase 131 H (34-104) U/L Albumin 3.5 (3.4-5.0) gm/dl
[2022-06-10] MEDS: QUEtiapine FUMARATE 200 MG TAB PO SCH (19:56)
[2022-06-11] MEDS: CLOTRIMAZOLE 10 MG TROCHE BUCCAL SCH ×5 (01:14→18:12)
[2022-06-11] MEDS: diazePAM 5 MG TABLET PO SCH ×2 (06:01→13:32)
[2022-06-11] MEDS: ALBUT/IPRATROP 3MG/0.5MG NEB 3 ML VIAL NEB SCH ×4 (07:05→19:22)
--- NOTE | 2022-06-11 07:29 | XRay Report ---
KUB HISTORY: constipation COMPARISON: Abdomen and pelvis CT 06/08/2022. FINDINGS: The bowel gas pattern is unremarkable. There are no dilated loops of small bowel to suggest an obstruction. No renal calculi. No ureteral calculi. No pneumoperitoneum or pneumatosis. Moderate fecal retention again noted. Prior cholecystectomy. There are surgical clips within the epigastric r egion. The lung bases appear clear. IMPRESSION: Moderate fecal retention, unchanged. ACT 112: Negative or not required by law. Electronically signed by: Billy Quintanilla M.D. 06/11/2022 7:28 AM
[2022-06-11 08:27] LABS: Hematocrit (blood only) 37.7 % (37.0-47.0); Hemoglobin 12.8 g/dl (12.0-16.0); Mean Corpuscular Hemoglobin 30.9 pg (25.0-34.0); Mean Corpuscular Volume 91.1 fL (80.0-100.0); Mean Platelet Volume 8.6 fL (9.4-12.4); Platelet Count 288 K/uL (130-400); RDW Coefficient of Variation 13.1 % (11.5-14.5); RDW Standard Deviation 43.6 fL (36.4-46.3); Red Blood Count 4.14 M/uL (4.20-5.40)
[2022-06-11 08:57] LABS: Albumin Globulin Ratio 1.2 (0.9-2); Albumin Level 3.3 gm/dl (3.4-5.0); BUN Creatinine Ratio 11.8 (10-20); Bilirubin,Total 0.4 mg/dl (0.2-1.0); Calcium 8.8 mg/dl (8.6-10.3); Creatinine Clr Calc Pharmacy 58.5 ml/min; Est GFR (African American) 105.6 ml/min; Est GFR (Non-African American) 91.2 ml/min; Globulin 2.8 gm/dl (2.5-4.0); Potassium 3.8 mmol/L (3.5-5.1); Total Protein 6.1 gm/dl (6.0-8.3)
[2022-06-11 09:02] LABS: Codeine Urine NEGATIVE ng/mL (<50); Hydrocodone Urine NEGATIVE ng/mL (<50); Hydromor Urine NEGATIVE ng/mL (<50); Morphine Urine 995 ng/mL (<50); Norhydrocodone Conf Ur NEGATIVE ng/mL (<50); Noroxycodone Urine NEGATIVE ng/mL (<50); Oxycodone Urine NEGATIVE ng/mL (<50); Oxymorph Urine NEGATIVE ng/mL (<50)
[2022-06-11] MEDS: POLYETHYLENE (MIRALAX) 17 GM PACK PO SCH (09:19)
[2022-06-11] MEDS: NICOTINE 21 MG/24 HR TDSY TD SCH (09:19)
[2022-06-11] MEDS: UMECLIDINIUM/VILANTEROL 62.5/25MCG 7 PUFFS/INHALER INH SCH (09:20)
[2022-06-11] MEDS: FLUTICASONE FUROATE 200MCG 14 PUFFS/INHALER INH SCH (09:20)
[2022-06-11] MEDS: LACTULOSE SYRUP 20 GM/30 ML UDC PO SCH ×2 (09:21→13:32)
[2022-06-11] MEDS: LOSARTAN POTASSIUM 25 MG TAB PO SCH (09:21)
[2022-06-11] MEDS: DOCUSATE SODIUM 100 MG CAP PO SCH (09:21)
[2022-06-11] MEDS: ACETAMINOPHEN 325 MG TAB PO PRN (09:21)
[2022-06-11] MEDS: MAGNESIUM OXIDE 400 MG TAB PO SCH (09:21)
[2022-06-11] MEDS: VENLAFAXINE HCL XR 150 MG CAPXR PO SCH (09:22)
[2022-06-11] MEDS: CLOPIDOGREL BISULFATE 75 MG TAB PO SCH (09:22)
[2022-06-11] MEDS: VENLAFAXINE HCL XR 75 MG CAPXR PO SCH (09:22)
[2022-06-11] MEDS: AZITHROMYCIN 250 MG TAB PO SCH (09:22)
[2022-06-11] MEDS: amLODIPine BESYLATE 5 MG TAB PO SCH (09:22)
[2022-06-11] MEDS: PANTOprazole 40 MG TAB PO SCH (09:22)
[2022-06-11] MEDS: SENNA 8.6 MG TAB PO SCH (09:23)
[2022-06-11] MEDS: ENOXAPARIN INJ 40 MG/0.4 ML SYR SQ SCH (16:32)
--- NOTE | 2022-06-11 17:07 | Hospitalist Progress Note ---
Date of Service June 11, 2022 Assessment & Plan (1) Abdominal pain: (2) Chronic constipation: (3) Gastroparesis: Plan: Patient is 66 yr female with H/O Chronic abdominal pain, gastroparesis, chronic constipation presented to ER with complaint of ongoing abdominal pain, constipation x 1 week. Tried home enema yesterday without relief Gastroparesis Chronic intractable abdominal pain Chronic constipation Transaminitis H/O Colonoscopy 08/13/2021: Poor colon prep with poor visualization H/O EGD 08/13/2021: Gastritis, Hill grade IV gastroesophageal valve MR defecography was attempted however unable to be completed secondary to patient's somnolence per outpatient chart review --CT ABD:No acute abnormalities to explain persistent diffuse abdominal pain. --MRCP: Motion degraded exam. Cholecystectomy with mild biliary ductal dilation redemonstrated, likely secondary to postsurgical status. No choledocholithiasis identified. Moderate colonic fecal retention. Continue lactulose, antiemetics as needed Monitor LFTs Avoid hepatotoxic agents as able Appreciate GI input Continue bowel regimen Outpatient colonoscopy, endoscopic ultrasound with trial of pyloric Botox injection for gastroparesis as per GI Needs follow-up with GI upon discharge Enema as needed Started on Low fiber diet Encouraged to ambulate Left thyroid lobe colloid cyst --Neck US:Real-time grayscale and color flow sonography of the left supraclavicular soft tissues is performed from the supraclavicular region to the submandibular region. No sonographic abnormality is identified. There is no mass lesion or fluid collection. Subcentimeter colloid cysts and a coarse ca lcification noted in the left lobe of the thyroid gland. -Follow-up with ENT as outpatient (4) GERD (gastroesophageal reflux disease): Plan: Continue PPI Previously prescribed Carafate-noncompliant due to intolerance (5) Chronic respiratory failure with hypoxia: (6) COPD (chronic obstructive pulmonary disease): Plan: Chronic oxygen dependency--on 2 L at baseline CXR: No acute infiltrate No signs of acute exacerbation Continue neb treatments Continue home inhalers On chronic Zithromax Thursday and Fridays Follows with [facility] pulmonology (7) Depression with anxiety: (8) Borderline personality disorder: Plan: Suspected Somatization disorder Continue Seroquel, venlafaxine Started on diazepam Patient is to follow-up with psychiatry: Guillermo Santos on 06/12/2022 Await for Psych Input (9) Hypertension: Plan: Continue amlodipine, losartan (10) Thrush: Plan: Recently diagnosed thrush and started clotrimazole troches 06/05/2022 Continue clotrimazole troches (11) Chronic hyponatremia: Plan: Sodium 138 Has been on sodium tabs at home BP elevated--Hold Salt tabs for now Monitor BP, Sodium levels Sodium 132 today (12) Hyperlipidemia: Plan: On atorvastatin--noncompliant due to intolerance (13) Coronary artery calcification: Plan: Coronary artery calcifications noted on CT scan Followed with [facility] cardiology Continue Plavix (14) ABRAHAM (obstructive sleep apnea): Plan: Does not use CPAP or BiPAP (15) Tobacco use: Plan: Smoking cessation recommended Nicotine patch DVT Px Lovenox SQ Code Status Full code Admission and Anticipated Discharge Date Admission Date: June 09, 2022 Subjective Patient is seen and examined at bedside Remains anxious on most occasions Reported abdominal pressure this morning Had bowel movement after enema Denies any chest pain, dyspnea, dizziness Review of Systems Review of Systems: All systems reviewed & are unremarkable except as noted in Subjective Physical Exam Physical Exam: Physical Exam: Vitals signs as noted above General Appearance:Thin, Chronic ill, no apparent distress Head: normocephalic, Atraumatic Eyes: normal inspection, EOMI Neck: supple, Trachea midline Respiratory/Chest: Decreased breath sounds, CTA, No accessory muscle use Cardiovascular: S1, S2, No murmur Abdomen/GI:Soft, Non tender, Bowel sounds present Extremities/Musculoskeletal:normal inspection, no edema Neurologic/Psych:AAOX3, grossly no focal neurological deficits, +Anxious Skin: normal color, warm Results & Data Results & Data Vital Signs (Past 12 Hours) Vital Signs Temp Pulse Pulse Pulse Resp BP Pulse Ox 06/11/22 16:00 37.1 C 95 H 20 136/70 93 06/11/22 15:32 82 18 95 06/11/22 14:42 87 06/11/22 11:42 36.8 C 74 18 141/44 H 91 06/11/22 06:04 77 06/11/22 08:15 06/11/22 08:00 36.3 C L 75 20 133/77 91 O2 Del Method O2 Flow Rate 06/11/22 16:00 Room Air 06/11/22 15:32 Room Air 06/11/22 14:42 06/11/22 11:42 Nasal Cannula 2 06/11/22 06:04 06/11/22 08:15 Room Air 06/11/22 08:00 Nasal Cannula 2 Laboratory Results Short CBC 06/11/22 Range/Units 07:12 WBC 7.80 (4.8-10.8) K/ul Hgb 12.8 (12.0-16.0) g/dl Hct 37.7 (37.0-47.0) % Plt Count 288 (130-400) K/uL BMP 06/11/22 07:12 Sodium 132 L Potassium 3.8 Chloride 100 Carbon Dioxide 26 BUN 8 Creatinine 0.68 Glucose 97 Calcium 8.8 Liver Function 06/11/22 Range/Units 07:12 Total Bilirubin 0.4 (0.2-1.0) mg/dl AST 26 (13-39) U/L ALT 72 H (7-52) U/L Alkaline Phosphatase 121 H (34-104) U/L Albumin 3.3 L (3.4-5.0) gm/dl
[2022-06-11] MEDS ORDERED: ALBUT/IPRATROP 3MG/0.5MG NEB 3 ML VIAL NEB PRN (19:34)
--- NOTE | 2022-06-11 19:37 | Discharge Summary ---
Date of Service June 11, 2022 Admission HPI Per Admitting Provider Patient is 66-year-old female with PMH coronary artery calcifications, HTN, HLD, prediabetes, COPD, chronic respiratory failure on 2 L oxygen, tobacco use, depression, borderline personality disorder, GERD, chronic abdominal pain, gastroparesis, chronic constipation and others listed below presented to ER with complaint of abdominal pain. Patient with history of chronic constipation. History chronic abdominal pain, chronic nausea reported over 20 years. Outpatient records reviewed and previously seen by Elliott ESTES who thought may have gastroparesis. MR defecography was attempted however unable to be completed secondary to patient's somnolence. Patient most recently seen by GI on 06/02/2022 and had reported severe right lower quadrant pain so was referred to ER. She was seen at [facility] [place] ER on 06/02/2022 for abdominal pain and CT abdomen pelvis at that time did not show any acute intra-abdominal etiology. It was recommended patient be admitted at that time however patient decided to be discharged home. Patient states has not had a bowel movement for the past week. She reports that she has been taking Miralax 2 capfuls daily without relief. Patient states in past/tried other OTC laxatives without relief. She states yesterday and tried home enema without relief. Today she complains of diffuse abdominal pain which she states feels like her chronic pain however states that she is " tired of having chronic pain and decided to present to ER today". Patient with chronic shortness of breath and chronic cough at baseline. Feels shortness of breath is typically worse in the mornings. Denies any increased cough or increased shortness of breath. She reports she has been using her oxygen 2 L continuous. Still continues to smoke. Patient also reports that she has been on long-term Valium for chronic anxiety. She states recently Valium was changed to Klonopin as she asked PCP for something different because she felt Valium was not helping. Patient is to follow-up with psychiatry: Guillermo Santos on 06/12/2022. Patient states since being on Klonopin she feels the Valium helped better and is requesting going back on Valium. Denies fever/chills, diaphoresis, vomiting, MCCLENDON, dizziness, syncope, vision changes, neck pain, CP, palpitations, hemoptysis, sore throat, choking, otalgia, rhinorrhea, extremity weakness, extremity edema, rashes, urinary symptoms. Outpatient chart review: History colonoscopy 08/13/2021: Poor colon prep with poor visualization History EGD 08/13/2021: Gastritis, Hill grade IV gastroesophageal valve Admission Exam Per Admitting Provider General: no acute distress, WDWN, chronic ill-appearing Head: normocephalic, atraumatic Eyes: conjunctiva non-injected, anicteric ENT: normal inspection external ears, nose, mucous membranes moist Neck: supple, trachea midline Lungs: no respiratory distress on room air, faint wheezing throughout, no rhonchi/rales CV: RRR, no murmur, no JVD, no pretibial edema Abd: normal BS, soft, currently non-tender to deep palpation Ext: no cyanosis, no calf tenderness Neuro: A&O x 3, no focal deficits noted, tearful affect Skin: warm, dry Principal Diagnosis Gastroparesis Chronic intractable abdominal pain Chronic constipation Transaminitis Left thyroid lobe colloid cyst Suspected Somatization disorder Discharge Data Allergies Allergy/AdvReac Type Severity Reaction Status Date / Time aspirin Allergy Severe EDEMA Verified 06/08/22 15:08 AIRWAY, ABD PAIN haloperidol [From Haldol] Allergy Severe PER PT Verified 06/08/22 15:08 "STOPS BREATHING".--PER [facility] latex Allergy Intermediate Contact Verified 06/08/22 15:08 Dermatitis--ITCHING-GLOVES/PLASTIC TAPE pistachio nut Allergy Intermediate Hives Verified 06/08/22 15:08 sulfamethoxazole Allergy Mild ITCHING Verified 06/08/22 15:08 [From Bactrim] trimethoprim [From Bactrim] Allergy Mild ITCHING Verified 06/08/22 15:08 whey Allergy Unknown POSITIVE Verified 06/08/22 15:08 ALLERGY TEST amoxicillin [From Augmentin] AdvReac Intermediate NAUSEA/VOMI Verified 06/08/22 15:08 TING ciprofloxacin AdvReac Intermediate WEAKNESS/TR Verified 06/08/22 15:08 EMORS/NAUSE A clavulanic acid AdvReac Intermediate NAUSEA/VOMI Verified 06/08/22 15:08 [From Augmentin] TING hydromorphone [From Dilaudid] AdvReac Intermediate HALLUCINATI Verified 06/08/22 15:08 ONS ibuprofen AdvReac Intermediate Abdominal Verified 06/08/22 15:08 Pain levofloxacin AdvReac Intermediate Abdominal Verified 06/08/22 15:08 Pain metoclopramide [From Reglan] AdvReac Intermediate LEG Verified 06/08/22 15:08 MOVEMENTS/RESTLESS mirtazapine [From Remeron] AdvReac Intermediate MUSCLE Verified 06/08/22 15:08 PAIN/LEGS RESTLESS moxifloxacin [From Avelox] AdvReac Intermediate NAUSEA/VOMI Verified 06/08/22 15:08 TING naproxen AdvReac Intermediate Abdominal Verified 06/08/22 15:08 Pain NSAIDS (Non-Steroidal AdvReac Intermediate Abdominal Verified 06/08/22 15:08 Anti-Inflamma Pain roflumilast AdvReac Intermediate UNABLE TO Verified 06/08/22 15:08 TOLERATE Consultations 06/08/22 14:29 ED Decision to Admit Stat 06/09/22 08:00 Consult Psychiatry Routine 06/09/22 09:09 Consult Gastroenterology Routine Procedures Performed Laboratory Results WBC 7.80 K/ul (4.8-10.8) 06/11/22 07:12 RBC 4.14 M/uL (4.20-5.40) L 06/11/22 07:12 Hgb 12.8 g/dl (12.0-16.0) 06/11/22 07:12 Hct 37.7 % (37.0-47.0) 06/11/22 07:12 MCV 91.1 fL (80.0-100.0) 06/11/22 07:12 MCH 30.9 pg (25.0-34.0) 06/11/22 07:12 MCHC 34.0 g/dL (32.0-36.0) 06/11/22 07:12 RDW Std Deviation 43.6 fL (36.4-46.3) 06/11/22 07:12 RDW Coeff of Aniket 13.1 % (11.5-14.5) 06/11/22 07:12 Plt Count 288 K/uL (130-400) 06/11/22 07:12 MPV 8.6 fL (9.4-12.4) L 06/11/22 07:12 Immature Gran % (Auto) 0.6 % 06/08/22 11:44 Neut % (Auto) 65.6 % 06/08/22 11:44 Lymph % (Auto) 22.8 % 06/08/22 11:44 Brown % (Auto) 8.4 % 06/08/22 11:44 Eos % (Auto) 2.0 % 06/08/22 11:44 Baso % (Auto) 0.6 % 06/08/22 11:44 Neut # (Auto) 5.48 K/uL (1.40-6.50) 06/08/22 11:44 Lymph # (Auto) 1.90 K/uL (1.2-3.4) 06/08/22 11:44 Brown # (Auto) 0.70 K/uL (0.11-0.59) H 06/08/22 11:44 Eos # (Auto) 0.17 K/uL (0-0.50) 06/08/22 11:44 Baso # (Auto) 0.05 K/uL (0-0.2) 06/08/22 11:44 Immature Gran # (Auto) 0.05 K/uL (0.01-0.20) 06/08/22 11:44 Sodium 132 mmol/L (136-145) L 06/11/22 07:12 Potassium 3.8 mmol/L (3.5-5.1) 06/11/22 07:12 Chloride 100 mmol/L (98-107) 06/11/22 07:12 Carbon Dioxide 26 mmol/L (21-32) 06/11/22 07:12 Anion Gap 6 (3-11) 06/11/22 07:12 BUN 8 mg/dl (6-23) 06/11/22 07:12 Creatinine 0.68 mg/dl (0.6-1.2) 06/11/22 07:12 Est Cr Clr Drug Dosing 58.5 ml/min 06/11/22 07:12 Est GFR ( Amer) 105.6 ml/min 06/11/22 07:12 Est GFR (Non-Af Amer) 91.2 ml/min 06/11/22 07:12 BUN/Creatinine Ratio 11.8 (10-20) 06/11/22 07:12 Glucose 97 mg/dl (70-99(Fasting)) 06/11/22 07:12 Lactate 0.8 mmol/L (0.4-2.0) 06/08/22 15:23 Calcium 8.8 mg/dl (8.6-10.3) 06/11/22 07:12 Total Bilirubin 0.4 mg/dl (0.2-1.0) 06/11/22 07:12 AST 26 U/L (13-39) 06/11/22 07:12 ALT 72 U/L (7-52) H 06/11/22 07:12 Alkaline Phosphatase 121 U/L (34-104) H 06/11/22 07:12 Total Protein 6.1 gm/dl (6.0-8.3) 06/11/22 07:12 Albumin 3.3 gm/dl (3.4-5.0) L 06/11/22 07:12 Globulin 2.8 gm/dl (2.5-4.0) 06/11/22 07:12 Albumin/Globulin Ratio 1.2 (0.9-2) 06/11/22 07:12 Lipase 15 U/L (11-82) 06/08/22 11:44 TSH 1.850 uIu/ml (0.300-4.500) 06/10/22 07:56 Urine Color Yellow 06/08/22 11:50 Urine Appearance Clear (Clear) 06/08/22 11:50 Urine pH 8.5 (4.5-7.5) H 06/08/22 11:50 Ur Specific [place] 1.015 (1.000-1.030) 06/08/22 11:50 Urine Protein 1+ (Negative) H 06/08/22 11:50 Urine Glucose (UA) Negative (Negative) 06/08/22 11:50 Urine Ketones Negative (Negative) 06/08/22 11:50 Urine Blood Negative (Negative) 06/08/22 11:50 Urine Nitrite Negative (Negative) 06/08/22 11:50 Urine Bilirubin Negative (Negative) 06/08/22 11:50 Urine Urobilinogen Negative (Negative) 06/08/22 11:50 Ur Leukocyte Esterase Trace (Negative) H 06/08/22 11:50 Urine WBC (Auto) 1-5 /hpf (0-5) 06/08/22 11:50 Urine RBC (Auto) 0-4 /hpf (0-4) 06/08/22 11:50 U Hyaline Cast (Auto) 0 /lpf (0-5) 06/08/22 11:50 U Epithel Cells (Auto) >30 /lpf (0-5) H 06/08/22 11:50 Urine Bacteria (Auto) Negative (Negative) 06/08/22 11:50 Urine Opiates Screen Pos (Neg) H 06/08/22 14:34 U Codeine Confrm GC/MS NEGATIVE ng/mL (<50) 06/08/22 14:34 Ur Morphine (GC/MS) 995 ng/mL (<50) H 06/08/22 14:34 Ur Hydrocodone (GC/MS) NEGATIVE ng/mL (<50) 06/08/22 14:34 Ur Norhydrocodone NEGATIVE ng/mL (<50) 06/08/22 14:34 Ur Noroxycodone NEGATIVE ng/mL (<50) 06/08/22 14:34 Urine Oxycodone (GC/MS) NEGATIVE ng/mL (<50) 06/08/22 14:34 U Oxymorphone GC/MS NEGATIVE ng/mL (<50) 06/08/22 14:34 Ur Methadone, Qual Neg (Neg) 06/08/22 14:34 Ur Hydromorphone (GC/MS) NEGATIVE ng/mL (<50) 06/08/22 14:34 Urine Barbiturates Neg (Neg) 06/08/22 14:34 Ur Phencyclidine (PCP) Neg (Neg) 06/08/22 14:34 U Amphetamin/Meth Scrn Neg (Neg) 06/08/22 14:34 MDMA (Ecstasy) Screen Neg (Neg) 06/08/22 14:34 U Benzodiazepines Scrn Neg (Neg) 06/08/22 14:34 Ur Cocaine Metabolite Neg (Neg) 06/08/22 14:34 U Marijuana (THC) Screen Neg (Neg) 06/08/22 14:34 Drug Screen Comment SEE NOTE 06/08/22 14:34 SARS-CoV-2, RNA, NAAT NEGATIVE (NEGATIVE) 06/08/22 14:33 Impressions Abdomen/Pelvis CT 06/08/22 12:27 CT abd pelvis IV con only CLINICAL HISTORY: persistent diffuse abdominal pain TECHNIQUE: Helical axial images of the abdomen and pelvis were obtained and displayed. Automated dose lowering techniques and/or adjustment according to patient size were utilized for this exam. This exam was performed with intrave nous contrast. CT DOSE: 240.76 mGy.cm COMPARISON: Comparison is made to CT abdomen pelvis 06/02/2022 FINDINGS: Lower chest: No acute abnormality. Liver: Unremarkable. No focal lesions are seen. Gallbladder and biliary tree: Patient is status post cholecystectomy. Physiologic prominence of the biliary ducts is noted. Pancreas: Unremarkable, no focal lesions. Spleen: Unremarkable. Adrenals: Bilateral nodularity of the left adrenal gland is unchanged. Kidneys and ureters: Unremarkable. Bladder: Unremarkable. Reproductive organs: Patient is status post hysterectomy. Bowel: Patient is status post appendectomy. Postsurgical changes are seen about the stomach with a tiny hiatal hernia. Lymph nodes Retroperitoneal: Unremarkable. Pelvic: Unremarkable. Mesenteric: Unremarkable. Peritoneum: Normal. Vessels: Atherosclerotic calcifications are seen. Redemonstration of a tiny dissection/ulcerated plaque in the infrarenal aorta without acute abnormalities. Abdominal wall: Unremarkable. Bones: Degenerative changes in the visualized spine. IMPRESSION: 1. No acute abnormalities to explain persistent diffuse abdominal pain. 2. Additional findings as above. ACT 112: Negative or not required by law. Electronically signed by: Chuy Medley M.D. 06/08/2022 1:15 PM Chest X-Ray 06/08/22 16:03 XR chest 1V portable CLINICAL HISTORY: cough TECHNIQUE: Single frontal radiograph of the chest was obtained. Comparison: None available at the time of this dictation. FINDINGS: No lines and tubes are seen. Calcified aortic knob is seen. The lungs are clear. No evidence of pleural effusion or pneumothorax. IMPRESSION: No acute chest disease. ACT 112: Negative or not required by law. Electronically signed by: Chuy Medley M.D. 06/08/2022 4:44 PM Cholangiopancreatography MRI 06/09/22 11:03 MR MRCP HISTORY: 66 years-old Female el LFT, abd pain acute generalized abdominal pain with elevated LFTs COMPARISON: CT abdomen and pelvis 06/08/2022, 06/02/2022 TECHNIQUE: MRCP was obtained without the use of IV contrast according to institutional protocol. FINDINGS: Mild degenerative changes of the spine. The imaged lower chest appears unremarkable. Moderate colonic fecal retention. Questioned mild wall thickening involving the ascending colon, better seen on the comparison CT study. No bowel obstruction or free fluid. Motion degraded exam. Cholecystectomy with intrahepatic and extrahepatic biliary ductal dilation redemonstrated. The common bile duct measures up to approximately 7 mm. No pancreatic ductal dilation, choledocholithiasis or pancreatic divisum. There are a few questioned tiny sidebranch IPMN's within the pancreatic head measuring up to 4 mm. There are a few subcentimeter hepatic cysts present. IMPRESSION: 1. Motion degraded exam. 2. Cholecystectomy with mild biliary ductal dilation redemonstrated, likely secondary to postsurgical status. No choledocholithiasis identified. 3. Moderate colonic fecal retention. ACT 112: Negative or not required by law. The above report was generated using voice recognition software. It may contain grammatical, syntax or spelling errors. Electronically signed by: Jae Alex M.D. 06/09/2022 8:04 PM Head/Neck Ultrasound 06/10/22 12:57 ULTRASOUND SOFT TISSUES HEAD AND NECK CLINICAL HISTORY: Left supraclavicular mass. COMPARISON STUDY: No priors. FINDINGS: Real-time grayscale and color flow sonography of the left supraclavicular soft tissues is performed from the supraclavicular region to the submandibular region. No sonographic abnormality is identified. There is no mass lesion or fluid collection. Subcentimeter colloid cysts and a coarse calcification noted in the left lobe of the thyroid gland. IMPRESSION: No left supraclavicular abnormality is identified as clinically queried. Dictated: 06/10/2022 1:49 PM Transcribed: 06/10/2022 2:04 PM Xavier [id number] Electronically signed by: Fermin Godinez M.D. 06/10/2022 2:06 PM KUB X-Ray 06/11/22 07:00 KUB HISTORY: constipation COMPARISON: Abdomen and pelvis CT 06/08/2022. FINDINGS: The bowel gas pattern is unremarkable. There are no dilated loops of small bowel to suggest an obstruction. No renal calculi. No ureteral calculi. No pneumoperitoneum or pneumatosis. Moderate fecal retention again noted. Prior cholecystectomy. There are surgical clips within the epigastric region. The lung bases appear clear. IMPRESSION: Moderate fecal retention, unchanged. ACT 112: Negative or not required by law. Electronically signed by: Billy Quintanilla M.D. 06/11/2022 7:28 AM Ordered Studies 06/08/22 12:27 CT abd pelvis IV con only Stat 06/09/22 11:03 MR MRCP Routine 06/10/22 12:57 US Neck [US soft tissue head and neck] Routine Hospital Course (1) Abdominal pain: (2) Chronic constipation: (3) Gastroparesis: Patient is 66 yr female with H/O Chronic abdominal pain, gastroparesis, chronic constipation presented to ER with complaint of ongoing abdominal pain, constipation x 1 week. Tried home enema yesterday without relief Gastroparesis Chronic intractable abdominal pain Chronic constipation Transaminitis H/O Colonoscopy 08/13/2021: Poor colon prep with poor visualization H/O EGD 08/13/2021: Gastritis, Hill grade IV gastroesophageal valve MR defecography was attempted however unable to be completed secondary to patient's somnolence per outpatient chart review --CT ABD:No acute abnormalities to explain persistent diffuse abdominal pain. --MRCP: Motion degraded exam. Cholecystectomy with mild biliary ductal dilation redemonstrated, likely secondary to postsurgical status. No choledocholithiasis identified. Moderate colonic fecal retention. Continue lactulose, antiemetics as needed Monitor LFTs Avoid hepatotoxic agents as able Appreciate GI input Continue bowel regimen Outpatient colonoscopy, endoscopic ultrasound with trial of pyloric Botox injection for gastroparesis as per GI Needs follow-up with GI upon discharge Had 3 BMs after Enema Tolerated Low fiber diet diet Prefers to be discharged home today Left thyroid lobe colloid cyst --Neck US:Real-time grayscale and color flow sonography of the left supraclavicular soft tissues is performed from the supraclavicular region to the submandibular region. No sonographic abnormality is identified. There is no mass lesion or fluid collection. Subcentimeter colloid cysts and a coarse calcification noted in the left lobe of the thyroid gland. -Follow-up with ENT as outpatient (4) GERD (gastroesophageal reflux disease): Continue PPI Previously prescribed Carafate-noncompliant due to intolerance (5) Chronic respiratory failure with hypoxia: (6) COPD (chronic obstructive pulmonary disease): Chronic oxygen dependency--on 2 L at baseline CXR: No acute infiltrate No signs of acute exacerbation Continue neb treatments Continue home inhalers On chronic Zithromax Thursday and Fridays Follows with [facility] pulmonology (7) Depression with anxiety: (8) Borderline personality disorder: Suspected Somatization disorder Continue Seroquel, venlafaxine Started on diazepam Patient is to follow-up with psychiatry: Guillermo [place] on 06/12/2022 Await for Psych Input (9) Hypertension: Continue amlodipine, losartan (10) Thrush: Recently diagnosed thrush and started clotrimazole troches 06/05/2022 Continue clotrimazole troches (11) Chronic hyponatremia: Sodium 138 Has been on sodium tabs at home BP elevated--Hold Salt tabs for now Monitor BP, Sodium levels Sodium 132 today (12) Hyperlipidemia: On atorvastatin--noncompliant due to intolerance (13) Coronary artery calcification: Coronary artery calcifications noted on CT scan Followed with [facility] cardiology Continue Plavix (14) ABRAHAM (obstructive sleep apnea): Does not use CPAP or BiPAP (15) Tobacco use: Smoking cessation recommended Nicotine patch DVT Px Lovenox SQ Code Status Full code Total Time Total Time Spent Total Time Spent (In Minutes): 65 minutes Discharge Plan Discharge Items Patient Disposition: Home - Self-Care Reason For Visit: ABDOMINAL PAIN Discharge Diagnosis: Gastroparesis Chronic intractable abdominal pain Chronic constipation Transaminitis Left thyroid lobe colloid cyst Suspected Somatization disorder Activity: Per Instructions section Exercise/Sports: Gradually increase as tolerated Non-emergency contact: Primary Care Provider, Surgeon, Portfolio Assistant and Psychiatrist Call non-emergency contact if: you have any medication questions, your symptoms worsen, your pain is worsening and your pain is unusual for you Follow-up/Referrals: Liana Garza CRNP [Nurse Practitioner] - (Date & Time 06/19/2022 3:30 PM Provider ROSE MARIE Mitchell Department Gastroenterology, [facility] ) Boogie Meraz MD [Primary Care Provider] - (Date & Time 06/18/2022 10:00 AM Provider Gio Berry PA-C Department [facility] ) Diet: Low Fiber Addtl Attending Provider Instructions: --Follow up with your Primary Care physician on 10:00 AM --Follow up with your Portfolio Assistant Liana TROTTER on 3:30 PM --Follow up with your Pscyhiatrist at [facility] on 06/12/2022 as scheduled --Follow up with your ENT surgeon for further evaluation of Left thyroid lobe colloid cyst as advised --Follow up with your cloth printing inspector for outpatient colonoscopy, endoscopic ultrasound with trial of pyloric Botox injection for gastroparesis Seek immediate medical attention if your symptoms reoccur or worsen Please take all medications as instructed on discharge list below. Please call if you have any questions or problems. You can reach a [facility] hospitalist on duty at [facility] 24 hours a day by calling [phone] Pending Studies at Discharge: No Stand-Alone Forms: My [facility] [employer], Smoking Cessation Medications and DC Order Prescriptions: New docusate sodium 100 mg Capsule 100 mg PO BID Qty: 60 0RF diazepam 5 mg Tablet 5 mg PO TID PRN (Reason: Anxiety) Qty: 6 0RF polyethylene glycol 3350 [Miralax] 17 gram Powder In Packet 17 g PO BID PRN (Reason: constipation) Qty: 30 0RF sennosides [Senokot] 8.6 mg Tablet 8.6 mg PO QAM PRN (Reason: Constipation) Qty: 30 0RF Continued pantoprazole 40 mg tablet,delayed release (DR/EC) 40 mg PO DAILY venlafaxine 150 mg tablet extended release 24hr 450 mg PO DAILY clotrimazole 10 mg lyia 10 mg PO 5XD Rx Instructions: STARTED 06/05/22 FOR 14 DAYS--PER PT "NOT USING". atorvastatin 80 mg tablet 40 mg PO BID Rx Instructions: PER PT--NOT TAKING, PER [facility]--NOT TAKING ipratropium-albuterol 0.5 mg-3 mg(2.5 mg base)/3 mL Solution For Nebulization 3 ml INHALATION Q4H PRN (Reason: Shortness Of Breath Or Wheezing) azithromycin 250 mg tablet 250 mg PO 3XWK Rx Instructions: TAKES MON, WED, & FRI. quetiapine 200 mg tablet 200 mg PO HS clopidogrel 75 mg tablet 75 mg PO DAILY Rx Instructions: PT. ORDERED DAILY HOWEVER TAKING EVERY OTHER DAY amlodipine 5 mg Tablet 5 mg PO DAILY magnesium oxide 400 mg (241.3 mg magnesium) tablet 400 mg PO QAM losartan 25 mg tablet 25 mg PO DAILY albuterol sulfate 90 mcg/actuation Hfa Aerosol Inhaler 2 puff INHALATION Q4H PRN (Reason: BREATHING PROBLEMS--PER [facility]) Rx Instructions: PER PT "USES Q4H". ondansetron [Zofran ODT] 4 mg Tablet,Disintegrating 4 mg PO DIRECTED PRN (Reason: NAUSEA/VOMITING) fluticasone propionate [Flonase] 50 mcg/actuation [place],Suspension 2 spray INTRANASAL DAILY PRN (Reason: Congestion) Rx Instructions: PER [facility]--PER PT "ONLY NEEDED". administer into each nostril sodium chloride 1,000 mg tablet,soluble 1,000 mg PO QAM Complete Multi 50+ 500-300-250 mcg Tablet 1 tab PO DAILY Breztri Aerosphere 160-9-4.8 mcg/actuation Hfa Aerosol Inhaler 2 inh INHALATION AMPM Discontinued clonazepam 0.5 mg tablet 0.5 mg PO TID PRN (Reason: Anxiety) Rx Instructions: PER PT "DOESN'T WORK LIKE VALIUM". Discharge Orders: Discharge Order (Routine); Ordered 06/11/22 Ordered By: Nemesio Rodriguez Admission Data Admit Date/Time: 06/09/22 15:30 Attending Provider: Nemesio Rodriguez Admit Provider: Jason Monroe Primary Care Provider: Boogie Meraz Other Providers: Jason Monroe ; Esther Ricci ; Pam Gonzalez ; Robert Zaldivar ; Rachana Osborne ; Kaushik Holbrook ; Erika Jose ; Doretha Laboy ; Michelle Martinez ; Erica Hung ; Salica,Leonard ; Florentino Piedra ; Papito Meza ; Ankur Lynch ; Nelson Hebert ; Liana Garza ; Nydia Linton ; Ebony Lee ; Maryjo Germain ; Barbie Pierce ; Alexis Navas ; Pipe Wagoner ; Rylie Eid ; Niyah Garcia Jr
[2022-06-11] MEDS ORDERED: POLYETHYLENE (MIRALAX) 17 GM PACK PO SCH (21:00)
== END 2022-06-11 21:08 | disposition home health service (06) ==
LOC: ED 11:30 → EDINP 11:30 → SUATTDRO 15:08 → 2S 22:05 → 2W 06-10 01:26

== ENCOUNTER 2024-07-22 20:46 | Inpatient (IN) ==
--- NOTE | 2024-07-22 21:06 | Emergency Department Note ---
Impression & Plan Acute exacerbation of chronic obstructive pulmonary disease, Acute bronchitis ED Provider Note NAME: JACE LAY AGE: 68 SEX: F : 1955 ARRIVES VIA: Walk-In INFORMANT: Patient, ED PROVIDER(S): Cirilo Hunter DO CHIEF COMPLAINT: Shortness of breath HPI: The patient is a 68-year-old female who has a history of tobacco use and COPD who presented to the emergency department for an evaluation of difficulty breathing. The patient was seen in our facility last evening for similar complaints. She had a complete workup and it was recommended that she stay for inpatient treatment however the patient decided to leave AGAINST MEDICAL ADVICE. She has been using her outpatient medications however she continues to have ongoing pain. The patient denies having any fever. She denies having any hemoptysis or lower extremity swelling. She is been compliant with her outpatient medications otherwise. ROS: See above HPI for pertinent positives & negatives. A total of 10 systems reviewed and were otherwise negative. PAST MEDICAL HISTORY: See Below PAST SURGICAL HISTORY: See Below FAMILY HISTORY: See Below SOCIAL HISTORY: See Below HOME MEDICATIONS: See Below ALLERGIES: See Below VITALS: See Below PHYSICAL EXAMINATION: GENERAL: The patient is awake and alert. She is very anxious. She appears to be in respiratory distress. EYES: The conjunctivae are clear. The pupils are round and reactive. EARS, NOSE, MOUTH AND THROAT: The nose is without any evidence of any deformity. NECK: The neck is nontender and supple. RESPIRATORY: Diminished breath sounds are noted throughout. There was significant conversational dyspnea as well as tachypnea. CARDIOVASCULAR: Regular rate and rhythm noted there no murmurs rubs or gallops normal S1 normal S2. GASTROINTESTINAL: The abdomen is soft. Abdomen is nontender. MUSCULOSKELETAL/EXTREMITIES: There is no evidence of gross deformity full range of motion is noted in the hips and shoulders. SKIN: There is no significant pedal edema or calf tenderness. NEUROLOGIC: Patient is awake alert and oriented x3 MEDICAL DECISION MAKING: The patient is a 68-year-old female who presented to the emergency department for an evaluation of difficulty breathing. The patient was seen in our facility recently for similar complaints. At that time she was felt to be a good candidate for inpatient management but she decided she did not wish to stay. The patient was signed out AGAINST MEDICAL ADVICE. The patient returns today with worsening symptoms. She was felt to be in need of significant respiratory care. She was treated with IV steroids IV antibiotics IV fluids as well as bronchodilator therapy. On reevaluation she was somewhat improved. She does continue to use tobacco products. I do not feel the patient would be a good candidate for outpatient treatment at this time. I discussed her condition with the on-call [facility]ist. They have agreed to evaluate the patient in the emergency department. Triage Nursing notes reviewed. Prior medical records reviewed Vital Signs: reviewed and remarkable for elevated blood pressure and tachypnea. Differential diagnosis: Reactive airway disease, pneumonia, pneumothorax, COPD, CHF, infections, cardiac ischemia, pulmonary embolism, musculoskeletal, gastrointestinal, as well as other pathologies. ER treatment provided: See below Diagnostics interpreted by me: ECG: EKG was obtained in the emergency department. My interpretation is normal sinus rhythm at 87 bpm. There was no ectopy. There was no acute ST segment abnormalities noted. This was compared to a tracing from July 21, 2024. No changes were noted. Cardiac Monitoring: An order was placed for continuous cardiac monitoring. The monitor shows a rate of 87 bpm with sinus rhythm. Laboratory studies: As stated above and show below. Imaging studies: See below. Radiographic imaging was reviewed by myself Consultation(s): I discussed this case with Dr. Monroe who is on-call for the [facility]ist group. ED COURSE: Procedures: none Critical Care: I have personally spent greater than 35 minutes of critical care time in the direct management of this patient. This includes bedside care, interpretation of diagnostic studies, and testing, discussion with consultants, patient, and family members, and other required patient management activities. This 35 minutes is in excess of all separately billable procedures. Past Med/Surg History Problem List (Updated 07/23/24 @ 00:00 by Cirilo Hunter DO) Acute bronchitis (Acute) Acute exacerbation of chronic obstructive pulmonary disease (Acute) Left against medical advice (Acute) COPD with acute exacerbation (Acute) Acute respiratory failure (Acute) Eczema of both external ears At the External Auditory Meatus Tremor Abdominal pain Thrush Intractable abdominal pain (Acute) Acute constipation (Acute) Anxiety (Acute) Illness anxiety disorder Encounter for pre-operative examination Chronic respiratory failure with hypoxia Tobacco use ABRAHAM (obstructive sleep apnea) 2L of oxygen at HS via [facility] Borderline personality disorder GERD (gastroesophageal reflux disease) Chronic hyponatremia Coronary artery calcification on plavix daily---follows with [facility] Gastroparesis Chronic constipation Restless leg syndrome Hypertension Depression with anxiety Hyperlipidemia Osteoporosis COPD (chronic obstructive pulmonary disease) 2L of oxygen at HS Medical History Tremor Smoker History of electroconvulsive therapy Hiatal hernia Cervical stenosis of spine Fibrocystic breast changes Chronic ulcerative ileocolitis Hepatitis Age 14 likely hepatitis A Atherosclerosis Essential hypertension Surgical History History of lumpectomy of left breast History of wisdom tooth extraction History of tooth extraction History of tonsillectomy History of sinus surgery History of bilateral cataract extraction History of appendectomy History of hernia repair Reported history diaphragm hernia repair History of cholecystectomy History of hysterectomy History of esophagogastroduodenoscopy (EGD) History of colonoscopy History of neck surgery May [address] ACDF C5-6 [address] Patel > ROM limited all directions per pt Family History Sister Tremor Adverse effect of anesthesia sister BP dropped very low during a procedure one time Brother Tremor Social History Smoking Status: Current every day smoker Tobacco Type: Cigarettes Cigarettes Per Day: 1.5 ppd > advised npo status; Second Hand Exposure: No; Do You Dip or Chew Tobacco: No; Hx Alcohol Use: No Hx Substance Use: No Preferred Language: Turkmen Communication Ability: Effective Clinical Research Specialist Required: No Beliefs That Will Affect Care: None Current Living Situation: Significant Other Current Living Situation Comment: home with son Feels Safe at Home: Yes Assistive Devices: None and Oxygen - at Night Allergies Allergies Allergy/AdvReac Type Severity Reaction Status Date / Time aspirin Allergy Severe EDEMA Verified 01/07/23 09:14 AIRWAY, ABD PAIN haloperidol [From Haldol] Allergy Severe PER PT Verified 01/07/23 09:14 "STOPS BREATHING".--PER [facility] latex Allergy Intermediate Contact Verified 01/07/23 09:14 Dermatitis--ITCHING-GLOVES/PLASTIC TAPE pistachio nut Allergy Intermediate Hives Verified 01/07/23 09:14 sulfamethoxazole Allergy Mild ITCHING Verified 01/07/23 09:14 [From Bactrim] trimethoprim [From Bactrim] Allergy Mild ITCHING Verified 01/07/23 09:14 whey Allergy Unknown POSITIVE Verified 01/07/23 09:14 ALLERGY TEST amoxicillin [From Augmentin] AdvReac Intermediate NAUSEA/VOMI Verified 01/07/23 09:14 TING ciprofloxacin AdvReac Intermediate WEAKNESS/TR Verified 01/07/23 09:14 EMORS/NAUSE A clavulanic acid AdvReac Intermediate NAUSEA/VOMI Verified 01/07/23 09:14 [From Augmentin] TING hydromorphone [From Dilaudid] AdvReac Intermediate HALLUCINATI Verified 01/07/23 09:14 ONS ibuprofen AdvReac Intermediate Abdominal Verified 01/07/23 09:14 Pain levofloxacin AdvReac Intermediate Abdominal Verified 01/07/23 09:14 Pain metoclopramide [From Reglan] AdvReac Intermediate LEG Verified 01/07/23 09:14 MOVEMENTS/RESTLESS mirtazapine [From Remeron] AdvReac Intermediate MUSCLE Verified 01/07/23 09:14 PAIN/LEGS RESTLESS moxifloxacin [From Avelox] AdvReac Intermediate NAUSEA/VOMI Verified 01/07/23 09:14 TING naproxen AdvReac Intermediate Abdominal Verified 01/07/23 09:14 Pain NSAIDS (Non-Steroidal AdvReac Intermediate Abdominal Verified 01/07/23 09:14 Anti-Inflamma Pain roflumilast AdvReac Intermediate UNABLE TO Verified 01/07/23 09:14 TOLERATE Home Meds Home Medications Medication Instructions Recorded Confirmed pantoprazole 40 mg tablet,delayed 40 mg PO QAM 08/29/19 07/22/24 release (Protonix) venlafaxine 150 mg tablet,extended 150 mg PO QAM 08/31/19 07/22/24 release 24 hr amlodipine 5 mg tablet 5 mg PO QAM 06/08/22 07/22/24 budesonide 160 mcg-glycopyr 9 2 inh inhalation AMPM 06/08/22 07/22/24 mcg-formot 4.8 mcg/actuation HFA inhaler (Breztri Aerosphere) clopidogrel 75 mg tablet (Plavix) 75 mg PO QAM 06/08/22 07/22/24 ipratropium 0.5 mg-albuterol 3 mg 3 ml inhalation Q4H PRN Shortness 06/08/22 07/22/24 (2.5 mg base)/3 mL nebulization Of Breath Or Wheezing soln losartan 25 mg tablet (Cozaar) 50 mg PO QAM 06/08/22 07/22/24 sucralfate 1 gram tablet (Carafate) 1 g PO ACHS 07/31/22 07/22/24 venlafaxine 75 mg tablet 75 mg PO QAM 07/31/22 07/22/24 diazepam 5 mg tablet (Valium) 5 mg PO Q12 PRN Anxiety 08/08/22 07/22/24 lactulose 10 gram/15 mL oral 10 g PO DAILY PRN Constipation 01/02/23 07/22/24 solution atorvastatin 40 mg tablet 40 mg PO QAM 07/22/24 07/22/24 azithromycin 500 mg tablet 500 mg PO 3XWK 07/22/24 07/22/24 ipratropium 20 mcg-albuterol 100 1 puff inhalation TID 07/22/24 07/22/24 mcg/actuation mist for inhalation (Combivent Respimat) multivitamin 1 tab PO QAM 07/22/24 07/22/24 quetiapine 100 mg tablet 100 mg PO HS 07/22/24 07/22/24 sodium chloride 1,000 mg soluble 1,000 mg PO QAM 07/22/24 07/22/24 tablet venlafaxine 37.5 mg 37.5 mg PO [facility] 07/22/24 07/22/24 capsule,extended release 24 hr Previous Rx's Medication Instructions Recorded prednisone 20 mg tablet 60 mg (3 x 20 mg) PO DAILY 4 days 07/21/24 #12 tabs Results & Data (ED) Vital Signs Vital Signs - 24 hr 07/22/24 20:47 07/22/24 21:01 07/22/24 21:05 Temperature 36.6 C Temperature Source Oral Pulse Rate 86 87 87 Pulse Rate [Finger] Pulse Rate from SpO2 Sensor Respiratory Rate 30 H Respiratory Effort / Characteristics Respiratory Depth Blood Pressure 162/83 H 153/98 H Blood Pressure [Right Arm] Blood Pressure Mean 109 117 Blood Pressure Mean [Right Arm] Pulse Oximetry 97 97 Oxygen Delivery Method Nasal Cannula Nasal Cannula Oxygen Flow Rate 2 2 Sepsis Recent Fever Within 48 Hours No Sepsis New/Unexplained Change in Mental Status No Sepsis Action Taken by Nursing No Action Required 07/22/24 21:08 07/22/24 21:12 07/22/24 21:13 Temperature Temperature Source Pulse Rate Pulse Rate [Finger] 82 Pulse Rate from SpO2 Sensor Respiratory Rate 22 Respiratory Effort / Characteristics Spontaneous Short of Breath Respiratory Depth Blood Pressure Blood Pressure [Right Arm] Blood Pressure Mean Blood Pressure Mean [Right Arm] Pulse Oximetry 98 98 100 Oxygen Delivery Method Nasal Cannula Nasal Cannula Nebulizer Oxygen Flow Rate 2 2 Sepsis Recent Fever Within 48 Hours Sepsis New/Unexplained Change in Mental Status Sepsis Action Taken by Nursing 07/22/24 21:42 07/22/24 22:20 07/22/24 23:00 Temperature Temperature Source Pulse Rate 87 87 Pulse Rate [Finger] 88 Pulse Rate from SpO2 Sensor 87 88 Respiratory Rate 22 22 26 H Respiratory Effort / Characteristics Non-Labored Spontaneous Short of Breath SOB on Exertion Respiratory Depth Normal Blood Pressure 152/84 H Blood Pressure [Right Arm] 145/78 H Blood Pressure Mean 106 Blood Pressure Mean [Right Arm] 100 Pulse Oximetry 97 97 94 Oxygen Delivery Method Nasal Cannula Nasal Cannula Nasal Cannula Oxygen Flow Rate 2 2 2 Sepsis Recent Fever Within 48 Hours Sepsis New/Unexplained Change in Mental Status Sepsis Action Taken by Shelter Medications Current Medication List: was personally reviewed by me Laboratory Data Attestation: I reviewed the patient's lab results. 07/22/24 21:03 07/22/24 21:03 Lab Results 07/22/24 07/22/24 Range/Units 21:03 23:11 WBC 12.77 H (4.8-10.8) K/ul RBC 4.65 (4.20-5.40) M/uL Hgb 13.4 (12.0-16.0) g/dl Hct 40.5 (37.0-47.0) % MCV 87.1 (80.0-100.0) fL MCH 28.8 (25.0-34.0) pg MCHC 33.1 (32.0-36.0) g/dL RDW Std Deviation 42.2 (36.4-46.3) fL RDW Coeff of Aniket 13.4 (11.5-14.5) % Plt Count 327 (130-400) K/uL MPV 9.1 L (9.4-12.4) fL Immature Gran % (Auto) 0.5 % Neut % (Auto) 80.7 % Lymph % (Auto) 11.9 % [place] % (Auto) 6.7 % Eos % (Auto) 0.0 % Baso % (Auto) 0.2 % Neut # (Auto) 10.31 H (1.40-6.50) K/uL Lymph # (Auto) 1.52 (1.20-3.40) K/uL [place] # (Auto) 0.85 H (0.11-0.59) K/uL Eos # (Auto) 0.00 (0.00-0.50) K/uL Baso # (Auto) 0.03 (0.00-0.20) K/uL Immature Gran # (Auto) 0.06 (0.01-0.20) K/uL PT 10.9 (9.0-12.0) Seconds INR 1.0 (0.9-1.1) APTT 26 (21-31) Seconds PTT Ratio 1.0 VBG pH 7.36 (7.36-7.41) VBG pCO2 45 (38-50) mmHg VBG pO2 44 mmHg VBG HCO3 25 mmol/L VBG O2 Saturation 77.7 % VBG Base Excess -0.4 mEq/L Sodium 139 (136-145) mmol/L Potassium 4.3 (3.5-5.1) mmol/L Chloride 105 (98-107) mmol/L Carbon Dioxide 29 (21-32) mmol/L Anion Gap 5 (3-11) BUN 24 H (6-23) mg/dl Creatinine 0.91 (0.6-1.2) mg/dl Est Cr Clr Drug Dosing 44.6 ml/min eGFR 68.72 BUN/Creatinine Ratio 26.4 H (10-20) Glucose 102 H (70-99(Fasting)) mg/dl Lactate 1.2 (0.4-2.0) mmol/L Calcium 9.4 (8.6-10.3) mg/dl Magnesium 2.1 (1.7-2.4) mg/dl Total Bilirubin 0.4 (0.2-1.0) mg/dl Direct Bilirubin 0.1 (0-0.2) mg/dl AST 22 (13-39) U/L ALT 19 (7-52) U/L Alkaline Phosphatase 81 (34-104) U/L Troponin I High Sens 9.4 (0-14) pg/ml Total Protein 7.1 (6.0-8.3) gm/dl Albumin 4.2 (3.4-5.0) gm/dl Procalcitonin < 0.02 (0-0.5) ng/ml Urine Color Yellow Urine Appearance Clear (Clear) Urine pH 6.0 (4.5-7.5) Ur Specific [place] 1.012 (1.000-1.030) Urine Protein Negative (Negative) Urine Glucose (UA) Negative (Negative) Urine Ketones Negative (Negative) Urine Blood Negative (Negative) Urine Nitrite Negative (Negative) Urine Bilirubin Negative (Negative) Urine Urobilinogen Negative (Negative) Ur Leukocyte Esterase Negative (Negative) SARS-CoV-2 (PCR) NEGATIVE (Negative) Influenza Type A (PCR) Negative (Neg) Influenza Type B (PCR) Negative (Neg) RSV (RT-PCR) Negative (Neg) Administered Medications Discontinued Medications Albuterol (Albut/Ipratrop 3mg/0.5mg Neb 3 Ml Vial) 12 ml NEB ONE ONE; Protocol Stop: 07/22/24 20:58 Last Admin: 07/22/24 21:11 Dose: 12 ml Documented By: ANIL Dexamethasone Sodium Phosphate (DexamethasonePf 10 Mg/Ml Vial) 10 mg IV NOW ONE Stop: 07/22/24 20:58 Last Admin: 07/22/24 21:09 Dose: 10 mg Documented By: CECILIA Ceftriaxone Sodium (Rocephin) 2,000 mg in 50 mls @ 100 mls/hr IV NOW STA Stop: 07/22/24 22:24 Last Infusion: 07/22/24 23:09 Dose: Infused Documented By: Admin: 07/22/24 22:15 Dose: 100 mls/hr Documented By: CECILIA Sodium Chloride (Nss) 1,000 mls @ 999 mls/hr IV .Q1H1M ONE Stop: 07/22/24 23:40 Last Admin: 07/22/24 23:04 Dose: 999 mls/hr Documented By: CECILIA Imaging Data Attestation: I personally reviewed and interpreted this imaging study as follows: My Impression: 1 view chest x-ray was obtained in the emergency department. My interpretation is hyperinflation with no free air or definite infiltrate, final report below. Radiologist's Impression: Chest X-Ray 07/22/24 20:57 Exam(s): XR CXR 1 VIEW EXAM: XR Chest, 1 View CLINICAL HISTORY: Sepsis. TECHNIQUE: Frontal view of the chest. COMPARISON: 07/21/2024. FINDINGS: Lungs: No infiltrate. No atelectasis. No CHF. Pleural space: No pleural effusion. No pneumothorax. Heart: Unremarkable. No cardiomegaly. Mediastinum: Unremarkable. Normal mediastinal contour. Bones/joints: Unremarkable. No acute fracture. IMPRESSION: No acute abnormality. Electronically signed by: Marquis Lagos M.D. 07/22/24 22:27 PM Discharge Plan Visit Data Chief Complaint: Respiratory Distress Stated Complaint: RESPIRATORY DISTRESS ED Provider: Cirilo Hunter Discharge Problem: Acute exacerbation of chronic obstructive pulmonary disease, Acute bronchitis Patient Disposition: Being Evaluated by Hospitalist Condition: Good Forms Stand Alone Forms: [facility] Prescriptions Prescriptions: No Action pantoprazole [Protonix] 40 mg tablet,delayed release (DR/EC) 40 mg PO QAM venlafaxine 150 mg tablet extended release 24hr 150 mg PO QAM ipratropium-albuterol 0.5 mg-3 mg(2.5 mg base)/3 mL Solution For Nebulization 3 ml INHALATION Q4H PRN (Reason: Shortness Of Breath Or Wheezing) clopidogrel [Plavix] 75 mg tablet 75 mg PO QAM amlodipine 5 mg Tablet 5 mg PO QAM losartan [Cozaar] 25 mg tablet 50 mg PO QAM Breztri Aerosphere 160-9-4.8 mcg/actuation Hfa Aerosol Inhaler 2 inh INHALATION AMPM venlafaxine 75 mg Tablet 75 mg PO QAM sucralfate [Carafate] 1 gram Tablet 1 g PO ACHS diazepam [Valium] 5 mg tablet 5 mg PO Q12 PRN (Reason: Anxiety) lactulose 10 gram/15 mL Solution 10 g PO DAILY PRN (Reason: Constipation) prednisone 20 mg tablet 60 mg PO DAILY 4 Days Qty: 12 0RF Rx Instructions: ordered 07/21/24 take for 4 days venlafaxine 37.5 mg capsule,extended release 24hr 37.5 mg PO QAM atorvastatin 40 mg tablet 40 mg PO QAM Combivent Respimat 20-100 mcg/actuation mist 1 puff INHALATION TID quetiapine 100 mg tablet 100 mg PO HS multivitamin Tablet 1 tab PO QAM sodium chloride 1,000 mg tablet,soluble 1,000 mg PO QAM azithromycin 500 mg tablet 500 mg PO 3XWK Rx Instructions: take daily on THURSDAY,THURSDAY,FRIDAYS Referrals Referrals: Boogie Meraz MD [Primary Care Provider] -
[2024-07-22] MEDS: dexAMETHasone**PF** 10 MG/ML VIAL IV ONE (21:09)
[2024-07-22] MEDS: ALBUT/IPRATROP 3MG/0.5MG NEB 3 ML VIAL NEB ONE (21:11)
[2024-07-22 21:24] LABS: Base Excess VBG -0.4 mEq/L; HCO3 VBG 25 mmol/L; Oxygen Saturation VBG 77.7 %; PCO2 VBG 45 mmHg (38-50); PO2 VBG 44 mmHg; pH VBG 7.36 (7.36-7.41)
[2024-07-22 21:39] LABS: Albumin Level 4.2 gm/dl (3.4-5.0); BUN Creatinine Ratio 26.4 (10-20); Bilirubin Direct 0.1 mg/dl (0-0.2); Bilirubin,Total 0.4 mg/dl (0.2-1.0); Calcium 9.4 mg/dl (8.6-10.3); Creatinine Clr Calc Pharmacy 44.6 ml/min; Magnesium 2.1 mg/dl (1.7-2.4); Potassium 4.3 mmol/L (3.5-5.1); Total Protein 7.1 gm/dl (6.0-8.3)
[2024-07-22 21:43] LABS: Basophils # (auto) 0.03 K/uL (0.00-0.20); Basophils % (auto) 0.2 %; Hematocrit (blood only) 40.5 % (37.0-47.0); Hemoglobin 13.4 g/dl (12.0-16.0); Immature Granulocytes # (auto) 0.06 K/uL (0.01-0.20); Immature Granulocytes % (auto) 0.5 %; Lymphocytes # (auto) 1.52 K/uL (1.20-3.40); Lymphocytes % (auto) 11.9 %; Mean Corpuscular Hemoglobin 28.8 pg (25.0-34.0); Mean Corpuscular Hgb Conc 33.1 g/dL (32.0-36.0); Mean Corpuscular Volume 87.1 fL (80.0-100.0); Mean Platelet Volume 9.1 fL (9.4-12.4); Monocytes # (auto) 0.85 K/uL (0.11-0.59); Monocytes % (auto) 6.7 %; Neutrophils # (auto) 10.31 K/uL (1.40-6.50); Neutrophils % (auto) 80.7 %; Platelet Count 327 K/uL (130-400); RDW Coefficient of Variation 13.4 % (11.5-14.5); RDW Standard Deviation 42.2 fL (36.4-46.3); Red Blood Count 4.65 M/uL (4.20-5.40); White Blood Count 12.77 K/ul (4.8-10.8)
[2024-07-22 21:46] LABS: Troponin I High Sensitivity 9.4 pg/ml (0-14)
[2024-07-22 21:48] LABS: Partial Thromboplastin Time 26 Seconds (21-31); Prothrombin Time 10.9 Seconds (9.0-12.0)
[2024-07-22 22:01] LABS: Influenza A virus by PCR Negative (Neg); Influenza B virus by PCR Negative (Neg); RSV by PCR Negative (Neg); SARS CoV2 RNA(COVID-19) Ceph NEGATIVE (Negative)
[2024-07-22] MEDS: cefTRIAXone SODIUM 2,000 MG/50 ML BAG IV STA (22:15)
--- NOTE | 2024-07-22 22:28 | XRay Report ---
Exam(s): XR CXR 1 VIEW EXAM: XR Chest, 1 View CLINICAL HISTORY: Sepsis. TECHNIQUE: Frontal view of the chest. COMPARISON: 07/21/2024. FINDINGS: Lungs: No infiltrate. No atelectasis. No CHF. Pleural space: No pleural effusion. No pneumothorax. Heart: Unremarkable. No cardiomegaly. Mediastinum: Unremarkable. Normal mediastinal contour. Bones/joints: Unremarkable. No acute fracture. IMPRESSION: No acute abnormality. Electronically signed by: Marquis Lagos M.D. 07/22/24 22:27 PM
[2024-07-22] MEDS: SODIUM CHLORIDE 0.9% 1,000 ML IV ONE (23:04)
[2024-07-22 23:30] LABS: Appearance Urine Clear (Clear); Bilirubin Urine Negative (Negative); Blood Urine Negative (Negative); Color Urine Yellow; Glucose Urine UA Negative (Negative); Ketones Urine Negative (Negative); Leukocyte Esterase Urine Negative (Negative); Nitrite Urine Negative (Negative); Protein Urine Negative (Negative); Specific Gravity Urine 1.012 (1.000-1.030); Urobilinogen Urine Negative (Negative)
[2024-07-23] MEDS: QUEtiapine FUMARATE 100 MG TABLET PO STA (01:12)
[2024-07-23] MEDS: diazePAM 5 MG TABLET PO ONE (01:12)
[2024-07-23] MEDS: methylPREDNISolone 125 MG/2 ML VIAL IV STA (01:21)
[2024-07-23] MEDS: ALBUT/IPRATROP 3MG/0.5MG NEB 3 ML VIAL ONE (01:22)
--- NOTE | 2024-07-23 01:38 | History & Physical Report ---
Date of Service July 23, 2024 Assessment & Plan (1) Respiratory distress: Plan: 68-year-old female with past medical history significant for severe COPD,chronic respiratory failure with hypoxia, ongoing tobacco use, dyslipidemia, chronic hyponatremia, atherosclerosis of aorta, hypertension, history of CAD, history of hemangioma of intracranial structure, irritable bowel syndrome, gastroparesis, GERD, history of hepatitis C, protein calorie malnutrition, ulcerative pancolitis, restless leg syndrome, generalized osteoarthritis, trigeminal neuralgia, depression, borderline personality disorder, history of alcohol use, anxiety disorder, history of duodenal ulcer, history cluster B personal disorder, depression, presents with shortness of breath. Patient is short of breath with cough and chest tightness for a week. As outpatient she was prescribed Combivent inhaler. As she was not improving she came to the ER yesterday. And she was treated for COPD exacerbation with Solu-Medrol and hour- long nebs and advised for admission but patient signed out AMA. Comes back tonight because of difficulty breathing. Patient now suddenly become restless and complains of chest tightness and feeling of throat closing. Saturating okay on 2 L on the monitor. Tachypneic. Afebrile. Complains of chronic incontinence of urine and stool. Hemodynamics okay currently. Respiratory distress Short of breath and tachypnea History of severe COPD and chronic respiratory failure with hypoxia COPD exacerbation VBG okay done in the ER Chest x-ray okay Will do CTA chest Will follow CT soft tissue neck as complained of throat closing Received Decadron and hour-long neb in the ER and Rocephin Will do a dose of IV Solu-Medrol 60 mg and neb Placed on BiPAP Continue IV Solu-Medrol 40 mg 3 times daily DuoNeb ATC and as needed Continue empiric Rocephin Continue home azithromycin thrice weekly Procalcitonin negative Close monitoring telemetry Pulmonary consult in a.m. for further recommendation Ongoing tobacco abuse Nicotine patch Counseling History of hyponatremia Sodium 139 Hyperlipidemia On statin Depression Borderline personality disorder Continue home venlafaxine, Seroquel and Valium as needed Hypertension On losartan and amlodipine Will monitor GERD On Protonix CAD Mild plaque on coronary CT in 2021 Continue Plavix and statin History of ulcerative colitis Not on medication currently normal colonoscopy in 2022 as per GI DVT prophylaxis Lovenox Disposition Telemetry Full code. Addendum: When checked later seems doing better on BIPAP History of Present Illness Chief Complaint: Shortness of breath Primary Care Provider: Boogie Meraz MD 68-year-old female with past medical history significant for severe COPD,chronic respiratory failure with hypoxia, ongoing tobacco use, dyslipidemia, chronic hyponatremia, atherosclerosis of aorta, hypertension, history of CAD, history of hemangioma of intracranial structure, irritable bowel syndrome, gastroparesis, GERD, history of hepatitis C, protein calorie malnutrition, ulcerative pancolitis, restless leg syndrome, generalized osteoarthritis, trigeminal neuralgia, depression, borderline personality disorder, history of alcohol use, anxiety disorder, history of duodenal ulcer, history cluster B personal di sorder, depression, presents with shortness of breath. Patient is short of breath with cough and chest tightness for a week. As outpatient she was prescribed Combivent inhaler. As she was not improving she came to the ER yesterday. And she was treated for COPD exacerbation with Solu-Medrol and hour- long nebs and advised for admission but patient signed out AMA. Comes back tonight because of difficulty breathing. Patient now suddenly become restless and complains of chest tightness and feeling of throat closing. Saturating okay on 2 L on the monitor. Tachypneic. Afebrile. Complains of chronic incontinence of urine and stool. Hemodynamics okay currently. Past medical history. As mentioned above Past surgical history. Appendectomy. Breast biopsy. Colonoscopy. Cystoscopy. EGD. EGD with endoscopic ultrasound. Electroconvulsive therapy. Laparoscopic hysterectomy. Ligation oviducts. Next chest surgery. Removal of ovaries. Cholecystectomy. Repair of diaphragm hernia. Total abdominal hysterectomy with removal of tubes. Social history. Smoked 1.5 pack a day. History of alcoholism but currently not drinking. History of medical marijuana but not anymore as per records. Family history. Mother had breast cancer. Father had SD. Allergies Allergy/AdvReac Type Severity Reaction Status Date / Time aspirin Allergy Severe EDEMA Verified 01/07/23 09:14 AIRWAY, ABD PAIN haloperidol [From Haldol] Allergy Severe PER PT Verified 01/07/23 09:14 "STOPS BREATHING".--PER GMG latex Allergy Intermediate Contact Verified 01/07/23 09:14 Dermatitis--ITCHING-GLOVES/PLASTIC TAPE pistachio nut Allergy Intermediate Hives Verified 01/07/23 09:14 sulfamethoxazole Allergy Mild ITCHING Verified 01/07/23 09:14 [From Bactrim] trimethoprim [From Bactrim] Allergy Mild ITCHING Verified 01/07/23 09:14 whey Allergy Unknown POSITIVE Verified 01/07/23 09:14 ALLERGY TEST amoxicillin [From Augmentin] AdvReac Intermediate NAUSEA/VOMI Verified 01/07/23 09:14 TING ciprofloxacin AdvReac Intermediate WEAKNESS/TR Verified 01/07/23 09:14 EMORS/NAUSE A clavulanic acid AdvReac Intermediate NAUSEA/VOMI Verified 01/07/23 09:14 [From Augmentin] TING hydromorphone [From Dilaudid] AdvReac Intermediate HALLUCINATI Verified 01/07/23 09:14 ONS ibuprofen AdvReac Intermediate Abdominal Verified 01/07/23 09:14 Pain levofloxacin AdvReac Intermediate Abdominal Verified 01/07/23 09:14 Pain metoclopramide [From Reglan] AdvReac Intermediate LEG Verified 01/07/23 09:14 MOVEMENTS/RESTLESS mirtazapine [From Remeron] AdvReac Intermediate MUSCLE Verified 01/07/23 09:14 PAIN/LEGS RESTLESS moxifloxacin [From Avelox] AdvReac Intermediate NAUSEA/VOMI Verified 01/07/23 09:14 TING naproxen AdvReac Intermediate Abdominal Verified 01/07/23 09:14 Pain NSAIDS (Non-Steroidal AdvReac Intermediate Abdominal Verified 01/07/23 09:14 Anti-Inflamma Pain roflumilast AdvReac Intermediate UNABLE TO Verified 01/07/23 09:14 TOLERATE Home Medications Medication Instructions Recorded Confirmed Type pantoprazole 40 mg tablet,delayed 40 mg PO QAM 08/29/19 07/22/24 History release (Protonix) venlafaxine 150 mg tablet,extended 150 mg PO QAM 08/31/19 07/22/24 History release 24 hr amlodipine 5 mg tablet 5 mg PO QAM 06/08/22 07/22/24 History budesonide 160 mcg-glycopyr 9 2 inh inhalation AMPM 06/08/22 07/22/24 History mcg-formot 4.8 mcg/actuation HFA inhaler (Breztri Aerosphere) clopidogrel 75 mg tablet (Plavix) 75 mg PO QAM 06/08/22 07/22/24 History ipratropium 0.5 mg-albuterol 3 mg 3 ml inhalation Q4H PRN Shortness 06/08/22 07/22/24 History (2.5 mg base)/3 mL nebulization Of Breath Or Wheezing soln losartan 25 mg tablet (Cozaar) 50 mg PO QAM 06/08/22 07/22/24 History sucralfate 1 gram tablet (Carafate) 1 g PO ACHS 07/31/22 07/22/24 History diazepam 5 mg tablet (Valium) 5 mg PO Q12 PRN Anxiety 08/08/22 07/22/24 History lactulose 10 gram/15 mL oral 10 g PO DAILY PRN Constipation 01/02/23 07/22/24 History solution prednisone 20 mg tablet 60 mg (3 x 20 mg) PO DAILY 4 days 07/21/24 07/22/24 Rx #12 tabs atorvastatin 40 mg tablet 40 mg PO QAM 07/22/24 07/22/24 History azithromycin 500 mg tablet 500 mg PO 3XWK 07/22/24 07/22/24 History ipratropium 20 mcg-albuterol 100 1 puff inhalation TID 07/22/24 07/22/24 History mcg/actuation mist for inhalation (Combivent Respimat) multivitamin 1 tab PO QAM 07/22/24 07/22/24 History quetiapine 100 mg tablet 100 mg PO HS 07/22/24 07/22/24 History sodium chloride 1,000 mg soluble 1,000 mg PO QAM 07/22/24 07/22/24 History tablet Past Med/Surg History Problem List (Updated 07/23/24 @ 02:41 by Carlos Dietrich) Respiratory distress Acute bronchitis (Acute) Acute exacerbation of chronic obstructive pulmonary disease (Acute) Left against medical advice (Acute) COPD with acute exacerbation (Acute) Acute respiratory failure (Acute) Eczema of both external ears At the External Auditory Meatus Tremor Abdominal pain Thrush Intractable abdominal pain (Acute) Acute constipation (Acute) Anxiety (Acute) Illness anxiety disorder Encounter for pre-operative examination Chronic respiratory failure with hypoxia Tobacco use ABRAHAM (obstructive sleep apnea) 2L of oxygen at HS via [place] Borderline personality disorder GERD (gastroesophageal reflux disease) Chronic hyponatremia Coronary artery calcification on plavix daily---follows with S [facility] Gastroparesis Chronic constipation Restless leg syndrome Hypertension Depression with anxiety Hyperlipidemia Osteoporosis COPD (chronic obstructive pulmonary disease) 2L of oxygen at HS Medical History Tremor Smoker History of electroconvulsive therapy Hiatal hernia Cervical stenosis of spine Fibrocystic breast changes Chronic ulcerative ileocolitis Hepatitis Age 14 likely hepatitis A Atherosclerosis Essential hypertension Surgical History History of lumpectomy of left breast History of wisdom tooth extraction History of tooth extraction History of tonsillectomy History of sinus surgery History of bilateral cataract extraction History of appendectomy History of hernia repair Reported history diaphragm hernia repair History of cholecystectomy History of hysterectomy History of esophagogastroduodenoscopy (EGD) History of colonoscopy History of neck surgery May [address] ACDF C5-6 [address] Patel > ROM limited all directions per pt Family History Sister Tremor Adverse effect of anesthesia sister BP dropped very low during a procedure one time Brother Tremor Social History Smoking Status: Current every day smoker Tobacco Type: Cigarettes Cigarettes Per Day: 1.5 ppd >; Second Hand Exposure: No; Do You Dip or Chew Tobacco: No; Hx Alcohol Use: No Hx Substance Use: No Preferred Language: Kittitian Communication Ability: Effective Master Carpenter Required: No Beliefs That Will Affect Care: None Current Living Situation: Significant Other Current Living Situation Comment: home with son Feels Safe at Home: Yes Assistive Devices: None and Oxygen - at Night Review of Systems Review of Systems: All systems reviewed & are unremarkable except as noted in HPI & below Physical Exam Physical Exam: General- Restless and tachypneic Head- atraumatic Eyes- PERRL. ENT- oropharynx clear Neck- supple, no JVD. Lungs-Diminished b/l breath sounds, tachypnea Heart- regular rhythm; no murmur, no gallop. Abdomen- normal bowel sounds, soft, nontender, no distension Extremities- no pretibial edema, no erythema seen. Neuro- alert, oriented restless, PERRL, no facial palsy; no dysarthria; moves extremities Results & Data Results & Data Vital Signs (Past 12 Hours) Vital Signs Temp Pulse Pulse Resp BP BP Pulse Ox 07/23/24 01:28 90 05/10/25 01:17 28 H 94 07/23/24 00:03 86 21 163/89 H 98 07/22/24 23:00 87 26 H 152/84 H 94 07/22/24 22:20 88 22 145/78 H 97 07/22/24 21:42 87 22 97 07/22/24 21:13 100 07/22/24 21:12 82 22 98 07/22/24 21:08 98 07/22/24 21:05 87 07/22/24 21:01 87 30 H 153/98 H 97 07/22/24 20:47 36.6 C 86 162/83 H 97 O2 Del Method O2 Flow Rate 07/23/24 01:28 07/23/24 01:17 Nasal Cannula 2 07/23/24 00:03 Nasal Cannula 2 07/22/24 23:00 Nasal Cannula 2 07/22/24 22:20 Nasal Cannula 2 07/22/24 21:42 Nasal Cannula 2 07/22/24 21:13 Nebulizer 07/22/24 21:12 Nasal Cannula 2 07/22/24 21:08 Nasal Cannula 2 07/22/24 21:05 07/22/24 21:01 Nasal Cannula 2 07/22/24 20:47 Nasal Cannula 2 Diagnostic Findings Laboratory Results WBC 12.77 K/ul (4.8-10.8) H 07/22/24 21:03 RBC 4.65 M/uL (4.20-5.40) 07/22/24 21:03 Hgb 13.4 g/dl (12.0-16.0) 07/22/24 21:03 Hct 40.5 % (37.0-47.0) 07/22/24 21:03 MCV 87.1 fL (80.0-100.0) 07/22/24 21:03 MCH 28.8 pg (25.0-34.0) 07/22/24 21:03 MCHC 33.1 g/dL (32.0-36.0) 07/22/24 21:03 RDW Std Deviation 42.2 fL (36.4-46.3) 07/22/24 21:03 RDW Coeff of Aniket 13.4 % (11.5-14.5) 07/22/24 21:03 Plt Count 327 K/uL (130-400) 07/22/24 21:03 MPV 9.1 fL (9.4-12.4) L 07/22/24 21:03 Immature Gran % (Auto) 0.5 % 07/22/24 21:03 Neut % (Auto) 80.7 % 07/22/24 21:03 Lymph % (Auto) 11.9 % 07/22/24 21:03 Bleckley % (Auto) 6.7 % 07/22/24 21:03 Eos % (Auto) 0.0 % 07/22/24 21:03 Baso % (Auto) 0.2 % 07/22/24 21:03 Neut # (Auto) 10.31 K/uL (1.40-6.50) H 07/22/24 21:03 Lymph # (Auto) 1.52 K/uL (1.20-3.40) 07/22/24 21:03 Bleckley # (Auto) 0.85 K/uL (0.11-0.59) H 07/22/24 21:03 Eos # (Auto) 0.00 K/uL (0.00-0.50) 07/22/24 21:03 Baso # (Auto) 0.03 K/uL (0.00-0.20) 07/22/24 21:03 Immature Gran # (Auto) 0.06 K/uL (0.01-0.20) 07/22/24 21:03 PT 10.9 Seconds (9.0-12.0) 07/22/24 21: INR 1.0 (0.9-1.1) 07/22/24 21: APTT 26 Seconds (21-31) 07/22/24 21:03 PTT Ratio 1.0 07/22/24 21: VBG pH 7.36 (7.36-7.41) 07/22/24 21:03 VBG pCO2 45 mmHg (38-50) 07/22/24 21: VBG pO2 44 mmHg 07/22/24 21: VBG HCO3 25 mmol/L 07/22/24 21:03 VBG O2 Saturation 77.7 % 07/22/24 21: VBG Base Excess -0.4 mEq/L 07/22/24 21: Sodium 139 mmol/L (136-145) 07/22/24 21:03 Potassium 4.3 mmol/L (3.5-5.1) 07/22/24 21:03 Chloride 105 mmol/L (98-107) 07/22/24 21:03 Carbon Dioxide 29 mmol/L (21-32) 07/22/24 21:03 Anion Gap 5 (3-11) 07/22/24 21:03 BUN 24 mg/dl (6-23) H 07/22/24 21:03 Creatinine 0.91 mg/dl (0.6-1.2) 07/22/24 21:03 Est Cr Clr Drug Dosing 44.6 ml/min 07/22/24 21:03 eGFR 68.72 07/22/24 21:03 BUN/Creatinine Ratio 26.4 (10-20) H 07/22/24 21:03 Glucose 102 mg/dl (70-99(Fasting)) H 07/22/24 21:03 Lactate 1.2 mmol/L (0.4-2.0) 07/22/24 21:03 Calcium 9.4 mg/dl (8.6-10.3) 07/22/24 21:03 Magnesium 2.1 mg/dl (1.7-2.4) 07/22/24 21:03 Total Bilirubin 0.4 mg/dl (0.2-1.0) 07/22/24 21:03 Direct Bilirubin 0.1 mg/dl (0-0.2) 07/22/24 21:03 AST 22 U/L (13-39) 07/22/24 21:03 ALT 19 U/L (7-52) 07/22/24 21:03 Alkaline Phosphatase 81 U/L (34-104) 07/22/24 21:03 Troponin I High Sens 9.4 pg/ml (0-14) 07/22/24 21:03 Total Protein 7.1 gm/dl (6.0-8.3) 07/22/24 21:03 Albumin 4.2 gm/dl (3.4-5.0) 07/22/24 21:03 Procalcitonin < 0.02 ng/ml (0-0.5) 07/22/24 21:03 Urine Color Yellow 07/22/24 23:11 Urine Appearance Clear (Clear) 07/22/24 23:11 Urine pH 6.0 (4.5-7.5) 07/22/24 23:11 Ur Specific [place]well 1.012 (1.000-1.030) 07/22/24 23:11 Urine Protein Negative (Negative) 07/22/24 23:11 Urine Glucose (UA) Negative (Negative) 07/22/24 23:11 Urine Ketones Negative (Negative) 07/22/24 23:11 Urine Blood Negative (Negative) 07/22/24 23:11 Urine Nitrite Negative (Negative) 07/22/24 23:11 Urine Bilirubin Negative (Negative) 07/22/24 23:11 Urine Urobilinogen Negative (Negative) 07/22/24 23:11 Ur Leukocyte Esterase Negative (Negative) 07/22/24 23:11 SARS-CoV-2 (PCR) NEGATIVE (Negative) 07/22/24 21:03 Influenza Type A (PCR) Negative (Neg) 07/22/24 21:03 Influenza Type B (PCR) Negative (Neg) 07/22/24 21:03 RSV (RT-PCR) Negative (Neg) 07/22/24 21:03 Impressions Chest X-Ray 07/22/24 20:57 Exam(s): XR CXR 1 VIEW EXAM: XR Chest, 1 View CLINICAL HISTORY: Sepsis. TECHNIQUE: Frontal view of the chest. COMPARISON: 07/21/2024. FINDINGS: Lungs: No infiltrate. No atelectasis. No CHF. Pleural space: No pleural effusion. No pneumothorax. Heart: Unremarkable. No cardiomegaly. Mediastinum: Unremarkable. Normal mediastinal contour. Bones/joints: Unremarkable. No acute fracture. IMPRESSION: No acute abnormality. Electronically signed by: Marquis Lagos M.D. 07/22/24 22:27 PM ECG Additional Comments: ECG. Normal sinus rhythm rate of 87. No significant changes found. QTc 421. Code Status & VTE Plan VTE Prophylaxis Plan VTE Prophylaxis will be ordered: Yes
[2024-07-23] MEDS: OPTIRAY 320 125ml IV ONE (02:21)
[2024-07-23] MEDS ORDERED: guaiFENesin/CODEINE 100MG/10MG 5ML UDC PO PRN (02:41)
[2024-07-23] MEDS ORDERED: ALBUT/IPRATROP 3MG/0.5MG NEB 3 ML VIAL INH PRN (02:41)
[2024-07-23] MEDS ORDERED: NITROGLYCERIN SL 0.4 MG/TAB TAB SL PRN (02:41)
[2024-07-23] MEDS ORDERED: LACTULOSE SYRUP 10 GM/15 ML BTL 960 ML PO PRN (02:41)
[2024-07-23] MEDS ORDERED: ACETAMINOPHEN 325 MG TAB PO PRN (02:41)
[2024-07-23] MEDS ORDERED: NON-FORMULARY MEDICATION (Budesonide-Glycopyr-Formoterol [Breztri Aerosphere] 160-9-4.8 mc INH SCH (02:41)
--- NOTE | 2024-07-23 03:36 | CT Scan Report ---
EXAM: CT angio chest PE protocol CLINICAL HISTORY: PE TECHNIQUE: Contiguous axial images were obtained from the neck base through the upper abdomen following intravenous administration of iodinated contrast material. Angiographic images were processed, 3D MIP images were acquired for interpretation. If IV contrast material had not been administered, the likelihood of detecting abnormalities relevant to the patient's condition would have been substantially decreased. Coronal and sagittal 3-D MIPs were likewise performed and indicated to increase the sensitivity of detectin diffuse clinically relevant pathology. CT scan was performed according to ALARA (as low as reasonable achievable). COMPARISON: None. FINDINGS: Diffuse centrilobular emphysema noted in both lungs. Adequate contrast bolus without evidence of pulmonary embolism. The central airways are patent. No pleural effusion. The heart, aorta, and pulmonary arteries are of normal size and configuration. There are no appreciable coronary artery and aortic atherosclerotic calcifications. No pericardial effusion is identified. The thyroid is unremarkable. No mediastinal, hilar, or axillary lymphadenopathy is noted. No suspicious lytic or sclerotic osseous lesions are identified. IMPRESSION: 1. Diffuse centrilobular emphysema noted in both lungs. 2. No evidence of pulmonary embolism Electronically signed by Torin Henderson 07-23-2024 03:36 AM
--- NOTE | 2024-07-23 03:39 | CT Scan Report ---
EXAM: CT soft tissue neck wo/w con CLINICAL HISTORY: sob, compains of throat closing TECHNIQUE: Computed tomography of the neck was performed without and with intravenous contrast. Contiguous axial images were obtained. Reformatted coronal and sagittal images were also reviewed. If IV contrast material had not been administered, the likelihood of detecting abnormalities relevant to the patients condition would have been substantially decreased. CT scan was performed according to ALARA (as low as reasonable achievable). COMPARISON: none. FINDINGS: Included intracranial substances, orbits, and paranasal sinuses are grossly unremarkable. Nasopharynx, oropharynx, oral cavity, hypopharynx and larynx are grossly unremarkable. Parotid, submandibular and thyroid glands are grossly unremarkable. Scattered bilateral jugulo-digastric lymph nodes are present however, none are pathologically enlarged. No obvious vascular abnormality or enhancing lesion seen in neck or in and around airway. Visualized included lung apices are grossly clear, and no acute osseous abnormality detected. IMPRESSION: 1. Unremarkable study. Electronically signed by Torin Henderson 07-23-2024 03:38 AM
[2024-07-23] MEDS: ALBUT/IPRATROP 3MG/0.5MG NEB 3 ML VIAL NEB SCH (07:05)
--- NOTE | 2024-07-23 07:11 | Electrocardiogram Report ---
Test Reason : Blood Pressure : */* mmHG Vent. Rate : 87 BPM Atrial Rate : 87 BPM P-R Int : 148 ms QRS Dur : 86 ms QT Int : 350 ms P-R-T Axes : 75 -2 62 degrees QTcB Int : 421 ms Normal sinus rhythm Normal ECG When compared with ECG of 21-Jul-2024 16:04, No significant change was found Confirmed by Arcadio Arroyo ([id number]) on 07/23/2024 7:11:01 AM Referred By: REFERRED SELF Confirmed By: Arcadio Arroyo
[2024-07-23] MEDS: UMECLIDINIUM/VILANTEROL 62.5/25MCG 7 PUFFS/INHALER INH SCH (08:57)
[2024-07-23] MEDS: FLUTICASONE FUROATE 200MCG 14 PUFFS/INHALER INH SCH (08:57)
[2024-07-23] MEDS: NICOTINE 21 MG/24 HR TDSY TD SCH (08:58)
[2024-07-23] MEDS: ATORVASTATIN 40 MG TAB PO SCH (08:59)
[2024-07-23] MEDS: MULTIVITAMIN TAB PO SCH (08:59)
[2024-07-23] MEDS: amLODIPine BESYLATE 5 MG TAB PO SCH (08:59)
[2024-07-23] MEDS: PANTOprazole 40 MG TAB PO SCH (08:59)
[2024-07-23] MEDS: SODIUM CHLORIDE 1 GM TABLET PO SCH (08:59)
[2024-07-23] MEDS: methylPREDNISolone 40 MG in SYRINGE 0 ML IV SCH (08:59)
[2024-07-23] MEDS: VENLAFAXINE HCL XR 150 MG CAPXR PO SCH (08:59)
[2024-07-23] MEDS: SUCRALFATE 1 GM TAB PO SCH (08:59)
[2024-07-23] MEDS: BENZONATATE 100 MG CAPSULE PO SCH (08:59)
[2024-07-23] MEDS: LOSARTAN POTASSIUM 50 MG TAB PO SCH (08:59)
[2024-07-23] MEDS: ENOXAPARIN INJ 40 MG/0.4 ML SYR SQ SCH (08:59)
[2024-07-23] MEDS: CLOPIDOGREL BISULFATE 75 MG TAB PO SCH (09:00)
[2024-07-23] MEDS ORDERED: methylPREDNISolone 125 MG/2 ML VIAL IV SCH (09:00)
[2024-07-23] MEDS: OPTIRAY 320 100ml IV ONE (09:44)
--- NOTE | 2024-07-23 10:13 | CT Scan Report ---
CT abdomen pelvis wo/w con CLINICAL HISTORY: abdominal pain, diarrhea COMPARISON STUDY: 06/08/2022 FINDINGS: ABDOMEN: There is residual contrast in the renal collecting systems, ureters, and urinary bladder fro m the contrast CT scans yesterday which makes the exam nondiagnostic for detection of urinary calculi . Gallbladder is surgically absent. There are a few stable small cysts at the liver. Otherwise the live r, spleen, pancreas, and adrenal glands are unremarkable. Kidneys show no hydronephrosis. There are s cattered atherosclerotic calcifications. No abdominal aortic aneurysm. Pelvis: Urinary bladder is distended. Uterus is absent. No adnexal mass. There is mild sigmoid divert iculosis. No acute diverticulitis. There is moderate retained stool. No bowel inflammation or obstruc tion. No free fluid, free air, or abscess. No enlarged adenopathy. Osseous structures: There is lumbar degenerative disc disease. There are mild degenerative changes at the hips. IMPRESSION: No acute findings. ACT 112: Negative or not required by law. Electronically signed by: Markus Zimmerman M.D. 07/23/2024 10:10 AM
[2024-07-23] MEDS: AZITHROMYCIN 250 MG TAB PO SCH (10:52)
--- NOTE | 2024-07-23 12:50 | Communication Note ---
Patient seen and examined at bedside. Patient anxious and appears on edge throughout encounter. She states she has been having diarrhea and some abdominal pain and that "this isnt just a COPD exaccerbation." States she left AMA a few days ago but got more SOB so came back. On exam, appears on edge, significant expiratory wheezing noted on exam. Per patient compliance with inhalers and medications at home not great. Patient has COPD exaccerbation 2/2 medication noncompliance, perhaps viral illness vs. allergies as cause. Severe illness anxiety also contributing factor. Goal oxygen saturation 88%. Transition to PO prednisone given patient anxiety. Scheduled nebulizers. Continue home psych medications. CT abdomen/pelvis given current symptoms. Highly encourage titration off of benzodiazepines in outpatient setting given patients loss of coping mechanisms without benzos. Date of Service: July 23, 2024
[2024-07-23] MEDS: diazePAM 5 MG TABLET PO PRN (13:12)
[2024-07-23] MEDS: BENZOCAINE/MENTHOL 18 LOZ/1 BOX MT PRN (13:12)
[2024-07-23] MEDS: QUEtiapine FUMARATE 100 MG TABLET PO SCH (21:16)
[2024-07-23] MEDS: guaiFENesin 600 MG TABCR PO SCH (21:16)
[2024-07-23] MEDS: diazePAM 5 MG TABLET PO SCH (21:16)
[2024-07-23] MEDS ORDERED: cefTRIAXone SODIUM 2,000 MG/50 ML BAG IV SCH (22:00)
[2024-07-24] MEDS: predniSONE 20 MG TAB PO SCH (08:28)
--- NOTE | 2024-07-24 11:26 | Discharge Summary ---
Discharge Summary Date of Service July 24, 2024 Principal Dx & Hospital Course #1 = Principal Diagnosis (1) Respiratory distress: 68-year-old female with past medical history significant for severe COPD,chronic respiratory failure with hypoxia, ongoing tobacco use, dyslipidemia, chronic hyponatremia, atherosclerosis of aorta, hypertension, history of CAD, history of hemangioma of intracranial structure, irritable bowel syndrome, gastroparesis, GERD, history of hepatitis C, protein calorie malnutrition, ulcerative pancolitis, restless leg syndrome, generalized osteoarthritis, trigeminal neuralgia, depression, borderline personality disorder, history of alcohol use, anxiety disorder, history of duodenal ulcer, history cluster B personal disorder, depression, presents with shortness of breath. Patient is short of breath with cough and chest tightness for a week. As outpatient she was prescribed Combivent inhaler. As she was not improving she came to the ER yesterday. And she was treated for COPD exacerbation with Solu-Medrol and hour- long nebs and advised for admission but patient signed out AMA. Comes back tonight because of difficulty breathing. Patient now suddenly become restless and complains of chest tightness and feeling of throat closing. Saturating okay on 2 L on the monitor. Tachypneic. Afebrile. Complains of chronic incontinence of urine and stool. Hemodynamics okay currently. History of severe COPD and chronic respiratory failure with hypoxia #COPD Exaccerbation Ongoing tobacco abuse Nicotine patch -patient informed that she needs to quit smoking tobacco or she will likely get worse -improved significantly with steroids and nebs -discharge home on prednisone x5 days, azithromycin History of hyponatremia Sodium 139 Hyperlipidemia On statin Depression Borderline personality disorder -Continue home venlafaxine, Seroquel and Valium -discussed need to establish with psychiatry -patient needs to be downtitrated off of diazepam, patient has severely poor coping skills from years of diazepam use -needs additional dose and medication adjustments outpatient -decreased dose to 2.5 mg bid prn Hypertension On losartan and amlodipine Will monitor GERD On Protonix CAD Mild plaque on coronary CT in 2021 Continue Plavix and statin History of ulcerative colitis Not on medication currently normal colonoscopy in 2022 as per GI Notes For Next Care Provider 68-year-old female with past medical history significant for severe COPD,chronic respiratory failure with hypoxia, ongoing tobacco use, dyslipidemia, chronic hyponatremia, atherosclerosis of aorta, hypertension, history of CAD, history of hemangioma of intracranial structure, irritable bowel syndrome, gastroparesis, GERD, history of hepatitis C, protein calorie malnutrition, ulcerative pancolitis, restless leg syndrome, generalized osteoarthritis, trigeminal neuralgia, depression, borderline personality disorder, history of alcohol use, anxiety disorder, history of duodenal ulcer, history cluster B personal disorder, depression, presents with shortness of breath. On medicine, given bipap, prednisone, duonebs with improvement to baseline. DIscussed with patient need to stop tobacco use or her COPD will get significantly worse/end stage. Discussed need to stop valium outpatient with psychiatry supervision, not to stop cold turkey. Decreased valium to 2.5 mg bid. On 07/24/2024 patient medically stable for discharge home. To do: [ ] f/u with PCP, pulmonary, psychiatry [ ] titrate off of diazepam [ ] modulate psych meds per psychiatry, needs psychologist as well for personality disorder Medication Changes From Visit -see below Admission HPI Per Admitting Provider 68-year-old female with past medical history significant for severe COPD,chronic respiratory failure with hypoxia, ongoing tobacco use, dyslipidemia, chronic hyponatremia, atherosclerosis of aorta, hypertension, history of CAD, history of hemangioma of intracranial structure, irritable bowel syndrome, gastroparesis, GERD, history of hepatitis C, protein calorie malnutrition, ulcerative pancolitis, restless leg syndrome, generalized osteoarthritis, trigeminal neuralgia, depression, borderline personality disorder, history of alcohol use, anxiety disorder, history of duodenal ulcer, history cluster B personal disorder, depression, presents with shortness of breath. Patient is short of breath with cough and chest tightness for a week. As outpatient she was prescribed Combivent inhaler. As she was not improving she came to the ER yesterday. And she was treated for COPD exacerbation with Solu-Medrol and hour- long nebs and advised for admission but patient signed out AMA. Comes back tonight because of difficulty breathing. Patient now suddenly become restless and complains of chest tightness and feeling of throat closing. Saturating okay on 2 L on the monitor. Tachypneic. Afebrile. Complains of chronic incontinence of urine and stool. Hemodynamics okay currently. Past medical history. As mentioned above Past surgical history. Appendectomy. Breast biopsy. Colonoscopy. Cystoscopy. EGD. EGD with endoscopic ultrasound. Electroconvulsive therapy. Laparoscopic hysterectomy. Ligation oviducts. Next chest surgery. Removal of ovaries. Cholecystectomy. Repair of diaphragm hernia. Total abdominal hysterectomy with removal of tubes. Social history. Smoked 1.5 pack a day. History of alcoholism but currently not drinking. History of medical marijuana but not anymore as per records. Family history. Mother had breast cancer. Father had [facility]. Discharge Exam Gen: A&O 3 NAD, appears more calm today HEENT: NCAT, EOMI, not icteric. External ears normal. No rhinorrhea. Moist mucous membranes. Neck: Supple, full range of motion, no observable masses, No meningeal sign. Lungs: trace expiratory wheezing, much improved from yesterday CV: RRR, no edema. Abdomen: Soft, nondistended, No rebound tenderness. MSK: No joint swelling, no redness. Skin: No rashes, petechiae, lesions. Normal color per patient. Neuro: Normal Gait, Grossly intact. Psych: Appropriate for situation. autumn Updated Medication List Medication Instructions Recorded Confirmed Type pantoprazole 40 mg tablet,delayed 40 mg PO QAM 08/29/19 07/22/24 History release (Protonix) venlafaxine 150 mg tablet,extended 150 mg PO QAM 08/31/19 07/22/24 History release 24 hr amlodipine 5 mg tablet 5 mg PO QAM 06/08/22 07/22/24 History budesonide 160 mcg-glycopyr 9 2 inh inhalation AMPM 06/08/22 07/22/24 History mcg-formot 4.8 mcg/actuation HFA inhaler (Breztri Aerosphere) clopidogrel 75 mg tablet (Plavix) 75 mg PO QAM 06/08/22 07/22/24 History ipratropium 0.5 mg-albuterol 3 mg 3 ml inhalation Q4H PRN Shortness 06/08/22 07/22/24 History (2.5 mg base)/3 mL nebulization Of Breath Or Wheezing soln losartan 25 mg tablet (Cozaar) 50 mg PO QAM 06/08/22 07/22/24 History sucralfate 1 gram tablet (Carafate) 1 g PO ACHS 07/31/22 07/22/24 History diazepam 5 mg tablet (Valium) 5 mg PO Q12 PRN Anxiety 08/08/22 07/22/24 History lactulose 10 gram/15 mL oral 10 g PO DAILY PRN Constipation 01/02/23 07/22/24 History solution prednisone 20 mg tablet 60 mg (3 x 20 mg) PO DAILY 4 days 07/21/24 07/22/24 Rx #12 tabs atorvastatin 40 mg tablet 40 mg PO QAM 07/22/24 07/22/24 History azithromycin 500 mg tablet 500 mg PO 3XWK 07/22/24 07/22/24 History ipratropium 20 mcg-albuterol 100 1 puff inhalation TID 07/22/24 07/22/24 History mcg/actuation mist for inhalation (Combivent Respimat) multivitamin 1 tab PO QAM 07/22/24 07/22/24 History quetiapine 100 mg tablet 100 mg PO HS 07/22/24 07/22/24 History sodium chloride 1,000 mg soluble 1,000 mg PO QAM 07/22/24 07/22/24 History tablet azithromycin 250 mg tablet 500 mg (2 x 250 mg) PO DAILY 3 07/24/24 Rx days #6 tabs benzocaine 6 mg-menthol 10 mg 1 luciano MT Q6 PRN sore throat #18 ea 07/24/24 Rx lozenges (Sore Throat (benzocaine with menthol)) guaifenesin 600 mg tablet, 600 mg PO Q12 #60 tabs 07/24/24 Rx extended release 12 hr (Mucinex) nicotine (polacrilex) 4 mg gum 4 mg buccal Q8H PRN nicotine 07/24/24 Rx cravings #110 ea nicotine 21 mg/24 hr daily 1 patch transdermal QAM 30 days 07/24/24 Rx transdermal patch (Nicoderm CQ) #28 ea polyethylene glycol 3350 17 17 g PO DAILY #850 grams 07/24/24 Rx gram/dose oral powder (Miralax) prednisone 20 mg tablet 40 mg (2 x 20 mg) PO DAILY 5 days 07/24/24 Rx #10 tabs Hospital Stay Data Consultations 07/22/24 22:40 ED Decision to Admit Stat Diagnostic Imagining Performed 07/23/24 01:25 CT angio chest PE protocol Stat CT soft tissue neck wo/w con Stat 07/23/24 09:17 CT abdomen pelvis wo/w con Urgent Pending Results Patient Have Any Pending Studies at Discharge: No Discharge Instructions Given to Patient (Per Discharging Provider) 1. Please take all medications as prescribed. 2. Please follow up with PCP, pulmonology, psychiatry outpatient. 3. Please stop smoking tobacco. Total Time Total Time Spent Total Time Spent (In Minutes): I spent a total of 35 minutes in direct patient care, including [id number] t dayana with the patient and/or family, reviewing medical records, ordering and reviewing diagnostic tests, and coordinating care with other healthcare providers. This time includes: history taking, physical examination, medical decision making, counseling, ECG interpretation, imaging interpretation, lab interpretation, orders, and education, excluding time spent in the performance of separately billed services.
[2024-07-24 11:34] VITALS: O2SAT 91
[2024-07-24 11:37] VITALS: RESP 18; TEMP 97.3
[2024-07-24 11:53] VITALS: BP 162/72; PULSE 98
[2024-07-25] MEDS ORDERED: AZITHROMYCIN 250 MG TAB PO SCH (09:00)
--- NOTE | 2024-07-25 12:20 | Electrocardiogram Report ---
Test Reason : Blood Pressure : */* mmHG Vent. Rate : 72 BPM Atrial Rate : 72 BPM P-R Int : 144 ms QRS Dur : 92 ms QT Int : 368 ms P-R-T Axes : 67 -13 49 degrees QTcB Int : 402 ms Sinus rhythm with Premature atrial complexes Otherwise normal ECG When compared with ECG of 22-Jul-2024 21:00, Premature atrial complexes are now Present Nonspecific T wave abnormality no longer evident in Lateral leads Confirmed by Elvin Hernandez ([id number]) on 07/25/2024 12:20:21 PM Referred By: REFERRED SELF Confirmed By: Elvin Hernandez
== END 2024-07-24 12:58 | disposition home or self-care (01) | DRG 191 ==
LOC: ED 20:46 → 4W 07-23 01:33